=== PATIENT | female | born 1930 | race Caucasian/White ===

== ENCOUNTER 2019-01-09 00:13 | Inpatient (IN) | payer SELFPAY ==
[~2019-01-09] VITALS: Ht 152.4 cm; Wt 61.7 kg
[2019-01-09] MEDS ORDERED: ALBUTEROL 0.083% (NEB) 2.5 MG/3 ML AMP NEB STA (00:21)
[2019-01-09] MEDS ORDERED: ACETAMINOPHEN 325 MG TAB PO STA (00:21)
[2019-01-09] MEDS ORDERED: IPRATROPIUM (NEB) 0.5 MG/2.5 ML AMP NEB STA (00:21)
[2019-01-09] MEDS ORDERED: DEXAMETHASONE 10 MG/ML 1 ML INJ IV ONE (01:00)
[2019-01-09] MEDS ORDERED: LEVOFLOXACIN 500MG/D5W (PMX) 100 ML IVPB ONE (02:00)
[2019-01-09] MEDS ORDERED: ONDANSETRON 4 MG INJ IV PRN ×2 (02:00→03:00)
[2019-01-09] MEDS ORDERED: ACETAMINOPHEN 325 MG TAB PO PRN ×2 (02:00→03:00)
--- NOTE | 2019-01-09 02:23 | ERD ---
ER Documentation Chief Complaint Chief Complaint SOB, HX OF BRONCHITIS HPI This is a very pleasant 88-year female coming in with complaint of shortness of breath and cough for the past 2 days. She is visiting from [facility]. Cough is mildly productive with green sputum. Denies any fevers or chills. Denies any other current complaints. No sick contacts. No chest pain. ROS All systems reviewed and are negative except as per history of present illness. Allergies Allergies: Coded Allergies: Penicillins (Verified Allergy, Unknown, 01/09/19) PMhx/Soc Medical and Surgical Hx: pt denies Medical Hx, pt denies Surgical Hx Hx Alcohol Use: No Hx Substance Use: No Hx Tobacco Use: No Smoking Status: Never smoker Physical Exam Vitals Vital Signs Date Temp Pulse Resp B/P (MAP) Pulse Ox O2 O2 Flow FiO2 Time Delivery Rate 01/09/19 121 22 114/78 96 Nasal 2.0 01:35 (90) Cannula 01/09/19 128 32 96 21 00:50 01/09/19 100.2 121 20 160/71 93 00:15 (100) Physical Exam Const: No acute distress Head: Atraumatic Eyes: Normal Conjunctiva ENT: Normal External Ears, Nose and Mouth. Neck: Full range of motion. No meningismus. Resp: Scattered wheezes and rhonchi bilaterally Cardio: Regular rate and rhythm, no murmurs Abd: Soft, non tender, non distended. Normal bowel sounds Skin: No petechiae or rashes Back: No midline or flank tenderness Ext: No cyanosis, or edema Neur: Awake and alert Psych: Normal Mood and Affect Result Diagram: 01/09/19 0032 01/09/19 0032 Results 24 hrs Laboratory Tests Test 01/09/19 00:20 01/09/19 00:32 01/09/19 00:36 Urine Color YELLOW Urine Clarity SLIGHTLY CLOUDY Urine pH 5.0 Urine Specific [place] 1.015 Urine Ketones NEGATIVE mg/dL Urine Nitrite NEGATIVE mg/dL Urine Bilirubin NEGATIVE mg/dL Urine Urobilinogen 1+ mg/dL Urine Leukocyte Esterase 3+ Cristofer/ul Urine Microscopic RBC 17 /HPF Urine Microscopic WBC 54 /HPF Urine Squamous Epithelial Cells FEW /HPF Urine Bacteria FEW /HPF Urine Mucus FEW /HPF Urine Hemoglobin 2+ mg/dL Urine Glucose NEGATIVE mg/dL Urine Total Protein NEGATIVE mg/dl White Blood Count 14.8 10^3/ul Red Blood Count 4.43 10^6/ul Hemoglobin 13.2 g/dl Hematocrit 41.0 % Mean Corpuscular Volume 92.6 fl Mean Corpuscular Hemoglobin 29.8 pg Mean Corpuscular 32.2 g/dl Hemoglobin Concent Red Cell Distribution Width 13.7 % Platelet Count 238 10^3/UL Mean Platelet Volume 9.5 fl Immature Granulocytes % 0.300 % Neutrophils % 73.9 % Lymphocytes % 16.6 % Monocytes % 8.1 % Eosinophils % 0.7 % Basophils % 0.4 % Nucleated Red Blood Cells % 0.0 /100WBC Immature Granulocytes # 0.050 10^3/ul Neutrophils # 10.9 10^3/ul Lymphocytes # 2.5 10^3/ul Monocytes # 1.2 10^3/ul Eosinophils # 0.1 10^3/ul Basophils # 0.1 10^3/ul Nucleated Red Blood Cells # 0.0 10^3/ul Prothrombin Time 12.7 Sec Prothrombin Time Ratio 1.0 INR International 0.94 Normalized Ratio Activated Partial Thromboplast 28.1 Sec Time Sodium Level 137 mmol/L Potassium Level 3.7 mmol/L Chloride Level 103 mmol/L Carbon Dioxide Level 28 mmol/L Anion Gap 6 Blood Urea Nitrogen 11 mg/dl Creatinine 0.69 mg/dl Est Glomerular Filtrat mL/min Rate mL/min Glucose Level 113 mg/dl Calcium Level 8.9 mg/dl Total Bilirubin 0.6 mg/dl Direct Bilirubin 0.00 mg/dl Indirect Bilirubin 0.6 mg/dl Aspartate Amino 31 IU/L Transf (AST/SGOT) Alanine 21 IU/L Aminotransferase (ALT/SGPT) Alkaline Phosphatase 105 IU/L Troponin I < 0.012 ng/ml Total Protein 7.4 g/dl Albumin 4.1 g/dl Globulin 3.30 g/dl Albumin/Globulin Ratio 1.24 Lipase 56 U/L POC Venous Lactate 0.9 mmol/L Current Medications Medications Dose Sig/Melissa Start Time Status Last (Trade) Ordered Route PRN Stop Time Admin Dose Reason Admin 650 mg ONCE STAT 01/09/19 DC 01/09/19 Acetaminophen PO 00:21 01:24 (Tylenol 01/09/19 00:23 Tab) Albuterol 5 mg ONCE STAT 01/09/19 DC 01/09/19 (Proventil NEB 00:21 00:48 0.083% (Neb)) 01/09/19 00:23 Ipratropium 0.5 mg ONCE STAT 01/09/19 DC 01/09/19 Burke NEB 00:21 00:48 (Atrovent 01/09/19 00:23 0.02% (Neb)) 10 mg ONCE ONCE 01/09/19 DC 01/09/19 Dexamethasone IV 01:00 01:28 (Decadron) 01/09/19 01:01 Ondansetron 4 mg BRIDGE ORDER 01/09/19 HCl (Zofran PRN IV 02:00 Inj) NAUSEA/VOMITI 01/10/19 01:59 NG 650 mg ER BRIDGE 01/09/19 Acetaminophen PRN PO 02:00 (Tylenol .MILD PAIN 01/10/19 01:59 Tab) 1-3 OR TEMP 100 ml @ ONCE ONCE 01/09/19 Levofloxacin/ 100 mls/hr IVPB 02:00 Dextrose 01/09/19 02:59 Procedures/MDM EKG: Rate/Rhythm: [Normal Sinus Rhythm] QRS, ST, T-waves: [No changes consistent w/ acute ischemia] Impression: [No evidence of ischemia or arrhythmia] Chest X-ray 1V Interpreted by me: Soft Tissue: No acute abnormalities Bones: No acute abnormalities Mediastinum/Cardiac Silhouette/Lungs: [No acute abnormalities] Patient's respiratory symptoms have not responded to normal outpatient therapy and will require inpatient workup, monitoring, and treatment. Accepting Care Team: Current data and ongoing care discussed. Time: 2 AM Primary Provider: Dr. Wheeler Consulting: Deferred to inpatient team Outstanding Data: none Departure Diagnosis: Primary Impression: COPD (chronic obstructive pulmonary disease) COPD type: chronic bronchitis Chronic bronchitis type: mixed simple and mucopurulent Qualified Codes: J41.8 - Mixed simple and mucopurulent chronic bronchitis Condition: Serious WILVERMELODY Lamont Jan 09, 2019 02:23
--- NOTE | 2019-01-09 02:46 | HP ---
Date/Time of Note Date/Time of Note DATE: 01/09/19 TIME: 02:45 Assessment/Plan VTE Prophylaxis Pharmacological prophylaxis: heparin Lines/Catheters IV C[facility]ter Type (from [facility]): Peripheral IV Assessment/Plan Hospital Course This is a 88-year-old female being admitted to the telemetry floor for: #1 Suspect sepsis: Patient did present with a temp of 100.2. She was also tachycardic, tachynpniec x-rays concerning for possible underlying pneumonia bronchitis. Given also patient's night sweats and recent arrival from [place] we will also assess for underlying tuberculosis. Broad-spectrum antibiotics of vancomycin and aztreonam at the current time given patient's penicillin allergy. Will isolate the patient. We will test for acid-fast bacilli every 8 hours x3, QuantiFERON, MTB. Blood cultures are pending. #2 hypoxia: bronchtis, pna, vs other? Patient is requiring approximately 3 L supplemental O2. She does have diminished breath sounds bilaterally. Scheduled nebulizers of levaalbuterol and ipratropium. Steroid burst prednisone 40 mg p.o. daily. Patient's chest x-ray does show a possible hilar mass. We will proceed with a CT of the chest with and without contrast to further evaluate. #3 urinary tract infection: Currently on vancomycin and Zosyn, await urine culture results #4 DVT GI prophylaxis: Heparin subcu, Protonix Further treatment strategy will be implemented as per the clinical course. Result Diagram: 01/09/19 0032 01/09/19 0032 Results 24hrs Laboratory Tests Test 01/09/19 00:20 01/09/19 00:32 01/09/19 00:36 Urine Color YELLOW Urine Clarity SLIGHTLY CLOUDY A Urine pH 5.0 Urine Specific [place] 1.015 Urine Ketones NEGATIVE Urine Nitrite NEGATIVE Urine Bilirubin NEGATIVE Urine Urobilinogen 1+ H Urine Leukocyte Esterase 3+ H Urine Microscopic RBC 17 H Urine Microscopic WBC 54 H Urine Squamous FEW Epithelial Cells Urine Bacteria FEW A Urine Mucus FEW A Urine Hemoglobin 2+ H Urine Glucose NEGATIVE Urine Total Protein NEGATIVE White Blood Count 14.8 H Red Blood Count 4.43 Hemoglobin 13.2 Hematocrit 41.0 Mean Corpuscular Volume 92.6 Mean Corpuscular Hemoglobin 29.8 Mean Corpuscular 32.2 Hemoglobin Concent Red Cell Distribution Width 13.7 Platelet Count 238 Mean Platelet Volume 9.5 Immature Granulocytes % 0.300 Neutrophils % 73.9 Lymphocytes % 16.6 Monocytes % 8.1 Eosinophils % 0.7 Basophils % 0.4 Nucleated Red Blood Cells % 0.0 Immature Granulocytes # 0.050 H Neutrophils # 10.9 H Lymphocytes # 2.5 Monocytes # 1.2 H Eosinophils # 0.1 Basophils # 0.1 Nucleated Red Blood Cells # 0.0 Prothrombin Time 12.7 Prothrombin Time Ratio 1.0 INR International 0.94 Normalized Ratio Activated Partial Thromboplast 28.1 Time Sodium Level 137 Potassium Level 3.7 Chloride Level 103 Carbon Dioxide Level 28 Anion Gap 6 Blood Urea Nitrogen 11 Creatinine 0.69 Est Glomerular Filtrat Rate mL/min Glucose Level 113 Calcium Level 8.9 Total Bilirubin 0.6 Direct Bilirubin 0.00 Indirect Bilirubin 0.6 Aspartate Amino 31 Transf (AST/SGOT) Alanine 21 Aminotransferase (ALT/SGPT) Alkaline Phosphatase 105 Troponin I < 0.012 Total Protein 7.4 Albumin 4.1 Globulin 3.30 H Albumin/Globulin Ratio 1.24 Lipase 56 POC Venous Lactate 0.9 HPI/ROS Admit Date/Time Admit Date/Time Hx of Present Illness Chief complaint: Cough x3 days, phlegm This is a 88-year-old female with no past medical history according to her and the family who comes today with cough x3 days and phlegm. Patient was present with the family at the bedside. The family states that the patient is a visitor from [place] and came over from [place] approximately 1 week ago. Patient has been complaining of cough and phlegm for approximately 3 days. She denies any fevers. But she does report night sweats. She denies any chest pain or hemoptysis. Allergies: Penicillin Medications: None ROS Const: As per HPI Eyes : No pain discharge or redness or change in visual acuity ENT: No pain, sore throat, congestion, congestion, dysphagia or discharge Respiratory: As per HPI Cardiovascular: No chest pain, palpitation, PND, or edema GI : no change in appetite, abdominal pain, nausea, vomiting, diarrhea, constipation, or change in the color his stool Genitourinary: No dysuria, hematuria, flank pain , discharge or CVA tenderness Musculoskeletal: No joint pain, back pain, neck pain, restricted range of motion in neck or joints Skin: No rash, bruising or hives Neuro: No headache, dizziness, syncope, seizure, focal weakness Endocrine: No polyuria, polydipsia, temperature intolerance Psych: No hallucination, depression, anxiety or suicidal ideation PMH/Family/Social Past Medical History Medical History: no pertinent history Medications Current Medications Ondansetron HCl (Zofran Inj) 4 mg BRIDGE ORDER PRN IV NAUSEA/VOMITING; Start 01/09/19 at 02:00; Stop 01/10/19 at 01:59 Acetaminophen (Tylenol Tab) 650 mg ER BRIDGE PRN PO .MILD PAIN 1-3 OR TEMP; Start 01/09/19 at 02:00; Stop 01/10/19 at 01:59 Levofloxacin/ Dextrose 100 ml @ 100 mls/hr ONCE ONCE IVPB ; Start 01/09/19 at 02:00; Stop 01/09/19 at 02:59 Levalbuterol (Xopenex Neb) 1.25 mg Q4H HHN ; Start 01/09/19 at 03:00; Status UNV Ipratropium [place] (Atrovent 0.02% (Neb)) 0.5 mg Q4H RESP THERAPY HHN ; Start 01/09/19 at 05:00; Status UNV Prednisone (Prednisone) 40 mg DAILY PO ; Start 01/09/19 at 09:00; Stop 01/14/19 at 08:59; Status UNV Famotidine (Pepcid) 20 mg BID PO ; Start 01/09/19 at 03:00; Status UNV Coded Allergies: Penicillins (Verified Allergy, Unknown, 01/09/19) Past Surgical History Past Surgical Hx: no surgical history Family History Significant Family History: no pertinent family hx Social History Alcohol Use: none Smoking Status: Never smoker Drug Use: none Exam/Review of Systems Vital Signs Vitals Vital Signs Date Temp Pulse Resp B/P (MAP) Pulse Ox O2 O2 Flow FiO2 Time Delivery Rate 01/09/19 112 23 113/75 100 Nasal 2.0 02:31 (88) Cannula 01/09/19 21 00:50 01/09/19 100.2 00:15 Exam Exam General: Pleasant female currently lying in bed, she does not appear to be in any acute respiratory distress, she is currently on 3 L O2 of HEENT: Atraumatic, normocephalic. The pupils are equal, round and reactive. Extraocular motor are intact Neck: Supple with full range of motion. No rigidity or meningismus Chest: Nontender Lungs: Diminished breath sounds bilaterally, coarse Heart: sinus tachycardia Abdomen: Soft , nontender, nondistended , bowel sounds are present. No guarding no rebound tenderness , No masses or organomegaly. No costovertebral temporal a ngle mass Extremities: Normal to inspection, no edema no cyanosis Neurologic: Normal mental status, speech normal, cranial nerves II through XII are intact, motor and sensory are intact, Additional Comments EKG: Sinus tachycardia at approximately 127 bpm, no ST or T wave noise c oncerning for acute ischemia PROCEDURE: XR Chest. CLINICAL INDICATION: Possible sepsis TECHNIQUE: Single frontal view of the chest was obtained COMPARISON: None FINDINGS: There is appearance of minimal enlargement of the cardiac silhouette. Calcification in the aortic arch. There is minimal prominence of the lung interstitium likely minimal chronic changes. There is the suggestion of mild prominence of the right hilum. A right hilar mass is possible. Possible right lung apical linear fibrotic changes. Likely linear atelectasis/fibrosis at the left lung base. There is the suggestion of tenting of the right hemidiaphragm. ECG leads project over the chest. Small bilateral pleural effusions left larger than right. Degenerative enthesopathy in thoracic spine. IMPRESSION: Minimal enlargement of the cardiac silhouette. Suggestion of mild prominence of the right hilum. A right hilar mass is possible. Small bilateral pleural effusions left larger than right. CT chest with contrast may be useful for further evaluation. Please see above. RPTAT: HJES .Radhames Phillips MD, Date Time Electronically viewed and signed by .Radhames Phillips MD, on 01/09/2019 01:48 .S/ CC: MELODY PETTIT [id number] JOSIE GROVES Jan 09, 2019 02:46
[2019-01-09] MEDS ORDERED: SOD CHLORIDE 0.9% 100 ML ONE (02:50)
[2019-01-09] MEDS ORDERED: IOHEXOL 300MG/ML 150 ML BTL ONE (02:50)
[2019-01-09] MEDS ORDERED: PHEN118L PO (02:51)
[2019-01-09] MEDS ORDERED: DOCUSATE SODIUM 100 MG CAP PO PRN (03:00)
[2019-01-09] MEDS ORDERED: BISACODYL (EC) 5 MG TAB PO PRN (03:00)
[2019-01-09] MEDS ORDERED: NACL 0.9% 3 ML SYG IV SCH (03:00)
[2019-01-09] MEDS ORDERED: ALBUTEROL 0.083% (NEB) 2.5 MG/3 ML AMP NEB ONE (03:18)
[2019-01-09] MEDS ORDERED: IPRATROPIUM (NEB) 0.5 MG/2.5 ML AMP NEB ONE (03:19)
[2019-01-09] MEDS: FAMOTIDINE 20 MG TAB PO SCH ×2 (04:36→09:00)
[2019-01-09] MEDS: IPRATROPIUM (NEB) 0.5 MG/2.5 ML AMP HHN SCH ×5 (05:45→20:53)
[2019-01-09] MEDS: LEVALBUTEROL (NEB) 1.25 MG/0.5 ML AMP HHN SCH ×5 (05:45→20:53)
[2019-01-09] MEDS: HEPARIN 5,000 UNIT/1 ML VIAL SC SCH ×2 (06:20→15:54)
[2019-01-09] MEDS ORDERED: VANCOMYCIN IV PER PHARMACY XX SCH (07:30)
[2019-01-09] MEDS ORDERED: SOD CHLORIDE 0.9% 500 ML IV ONE (07:30)
[2019-01-09] MEDS ORDERED: NACL 3% FOR INHALATION 15 ML NEBU NEB ONE (07:30)
[2019-01-09] MEDS: AZTREONAM 1 GM/NS (PMX) 50 ML IVPB SCH ×2 (08:16→23:06)
[2019-01-09] MEDS ORDERED: predniSONE 20 MG TAB PO SCH ×2 (09:00)
[2019-01-09] MEDS ORDERED: VANCOMYCIN HCL 1.25 GM in SOD CHLORIDE 0.9% 250 ML IVPB SCH (09:00)
--- NOTE | 2019-01-09 17:06 | PN ---
Date/Time of Note Date/Time of Note DATE: 01/09/19 TIME: 17:04 Assessment/Plan VTE Prophylaxis SCD contraindicated: low risk/ambulating Pharmacological prophylaxis: LMWH Lines/Catheters IV Catheter Type (from Nrs): Peripheral IV Assessment/Plan Hospital Course Assessment and plan 1. Dyspnea, fever, bronchitis versus pneumonia. Antibiotics, follow-up on cultures 2. 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 3. Weight loss 5 to 8 pounds. 4. COPD? 5. Acute hypoxic respiratory failure, stable continue antibiotics S: Dyspnea low-grade fever. Mild/moderate weight loss only. States she was treated many years ago for tuberculosis. She started medical therapy in [place] and finished treatment in [place]. Denies any ill contacts. Did recently travel here from [place]. No edema chest pain. Diet has been okay. [place] and [place]. O: vss; some tachycardia Physical exam No pallor adenopathy JVD Regular some tachycardia no rub no gallop Scattered wheeze bilaterally Bowel sounds present nontender nondistended no RRG No edema or Homans Result Diagram: 01/09/19 0430 01/09/19 0430 Results 24hrs Laboratory Tests Test 01/09/19 00:20 01/09/19 00:32 01/09/19 00:36 01/09/19 04:30 Urine Color YELLOW Urine Clarity SLIGHTLY CLOUDY A Urine pH 5.0 Urine Specific 1.015 [place] Urine Ketones NEGATIVE Urine Nitrite NEGATIVE Urine Bilirubin NEGATIVE Urine 1+ H Urobilinogen Urine Leukocyte 3+ H Esterase Urine Microscopic 17 H RBC Urine Microscopic 54 H WBC Urine Squamous FEW Epithelial Cells Urine Bacteria FEW A Urine Mucus FEW A Urine Hemoglobin 2+ H Urine Glucose NEGATIVE Urine Total NEGATIVE Protein White Blood Count 14.8 H 16.0 H Red Blood Count 4.43 4.44 Hemoglobin 13.2 13.4 Hematocrit 41.0 41.1 Mean Corpuscular 92.6 92.6 Volume Mean Corpuscular 29.8 30.2 Hemoglobin Mean Corpuscular 32.2 32.6 Hemoglobin Concen t Red Cell 13.7 13.6 Distribution Width Platelet Count 238 236 Mean Platelet 9.5 9.3 Volume Immature 0.300 0.300 Granulocytes % Neutrophils % 73.9 Lymphocytes % 16.6 Monocytes % 8.1 Eosinophils % 0.7 Basophils % 0.4 Nucleated Red 0.0 0.0 Blood Cells % Immature 0.050 H 0.050 H Granulocytes # Neutrophils # 10.9 H Lymphocytes # 2.5 Monocytes # 1.2 H Eosinophils # 0.1 Basophils # 0.1 Nucleated Red 0.0 Blood Cells # Prothrombin Time 12.7 Prothrombin Time 1.0 Ratio INR International 0.94 Normalized Ratio Activated 28.1 Partial Thrombopl ast Time Sodium Level 137 137 Potassium Level 3.7 3.7 Chloride Level 103 102 Carbon Dioxide 28 26 Level Anion Gap 6 9 Blood Urea 11 10 Nitrogen Creatinine 0.69 0.61 Est Glomerular Filtrat Rate mL/min Glucose Level 113 225 #H Calcium Level 8.9 8.7 Total Bilirubin 0.6 0.6 Direct Bilirubin 0.00 0.00 Indirect 0.6 0.6 Bilirubin Aspartate Amino 31 28 Transf (AST/SGOT) Alanine 21 19 Aminotransferase (ALT/SGPT) Alkaline 105 113 Phosphatase Troponin I < 0.012 Total Protein 7.4 7.2 Albumin 4.1 4.0 Globulin 3.30 H 3.20 Albumin/Globulin 1.24 1.25 Ratio Lipase 56 POC Venous 0.9 Lactate Segmented 95 H Neutrophils % (Manual) Band Neutrophils 3 % (Manual) Lymphocytes % 2 L (Manual) Neutrophils # 15.3 H (Manual) Band Neutrophils 0.4 # Lymphocytes 0.3 L (Manual) Platelet Estimate NORMAL Polychromasia 1+ Hemoglobin A1c 5.9 Lactic Acid Level 1.8 B-Type 92 Natriuretic Peptide Thyroid 1.870 Stimulating Hormone (TSH) Test 01/09/19 08:00 01/09/19 08:21 Blood Gas Blood arterial Specimen Source Arterial Blood 01/09/2019 8:19:0 Date Drawn 0 AM Arterial Blood pH 7.427 (Temp corrected) Arterial Blood 33.2 L pCO2 (Temp correct) Arterial Blood 78.0 L pO2 (Temp corrected) Arterial Blood 21.4 L HCO3 Arterial Blood -2.2 Base Excess Arterial Blood 94.2 L Oxygen Saturation Jose Antonio Test ACCEPTAB Arterial Blood Right Radial Gas Puncture Site Arterial 0.5 Blood Carboxyhemo globin Arterial Blood 0.5 Methemoglobin Blood Gas A-a O2 169.0 H Differential Oxyhemoglobin 93.3 Percent Blood Gas 37.0 Temperature Blood Gas 20.0 Respiration Rate Blood Gas Actual 20 Respiration Rate Blood Gas VENT - AC Modality FiO2 40.0 Blood Gas Tidal 550.0 Volume Blood Gas Low 5.0 PEEP Setting Blood Gas CW Notified Whom Blood Gas 01/09/2019 8:27:0 Notified Time 0 AM Creatine Kinase 54 Creatine Kinase 4.2 Index Creatinine Kinase 2.27 MB (Mass) Troponin I < 0.012 Exam/Review of Systems Exam Vitals Vital Signs Date Temp Pulse Resp B/P (MAP) Pulse Ox O2 O2 Flow FiO2 Time Delivery Rate 01/09/19 111 20 100 Nasal 3.0 16:06 Cannula 01/09/19 97.9 115/68 14:00 (84) 01/09/19 21 00:50 Results Results 24hrs Laboratory Tests Test 01/09/19 00:20 01/09/19 00:32 01/09/19 00:36 01/09/19 04:30 Urine Color YELLOW Urine Clarity SLIGHTLY CLOUDY A Urine pH 5.0 Urine Specific 1.015 [place] Urine Ketones NEGATIVE Urine Nitrite NEGATIVE Urine Bilirubin NEGATIVE Urine 1+ H Urobilinogen Urine Leukocyte 3+ H Esterase Urine Microscopic 17 H RBC Urine Microscopic 54 H WBC Urine Squamous FEW Epithelial Cells Urine Bacteria FEW A Urine Mucus FEW A Urine Hemoglobin 2+ H Urine Glucose NEGATIVE Urine Total NEGATIVE Protein White Blood Count 14.8 H 16.0 H Red Blood Count 4.43 4.44 Hemoglobin 13.2 13.4 Hematocrit 41.0 41.1 Mean Corpuscular 92.6 92.6 Volume Mean Corpuscular 29.8 30.2 Hemoglobin Mean Corpuscular 32.2 32.6 Hemoglobin Concen t Red Cell 13.7 13.6 Distribution Width Platelet Count 238 236 Mean Platelet 9.5 9.3 Volume Immature 0.300 0.300 Granulocytes % Neutrophils % 73.9 Lymphocytes % 16.6 Monocytes % 8.1 Eosinophils % 0.7 Basophils % 0.4 Nucleated Red 0.0 0.0 Blood Cells % Immature 0.050 H 0.050 H Granulocytes # Neutrophils # 10.9 H Lymphocytes # 2.5 Monocytes # 1.2 H Eosinophils # 0.1 Basophils # 0.1 Nucleated Red 0.0 Blood Cells # Prothrombin Time 12.7 Prothrombin Time 1.0 Ratio INR International 0.94 Normalized Ratio Activated 28.1 Partial Thrombopl ast Time Sodium Level 137 137 Potassium Level 3.7 3.7 Chloride Level 103 102 Carbon Dioxide 28 26 Level Anion Gap 6 9 Blood Urea 11 10 Nitrogen Creatinine 0.69 0.61 Est Glomerular Filtrat Rate mL/min Glucose Level 113 225 #H Calcium Level 8.9 8.7 Total Bilirubin 0.6 0.6 Direct Bilirubin 0.00 0.00 Indirect 0.6 0.6 Bilirubin Aspartate Amino 31 28 Transf (AST/SGOT) Alanine 21 19 Aminotransferase (ALT/SGPT) Alkaline 105 113 Phosphatase Troponin I < 0.012 Total Protein 7.4 7.2 Albumin 4.1 4.0 Globulin 3.30 H 3.20 Albumin/Globulin 1.24 1.25 Ratio Lipase 56 POC Venous 0.9 Lactate Segmented 95 H Neutrophils % (Manual) Band Neutrophils 3 % (Manual) Lymphocytes % 2 L (Manual) Neutrophils # 15.3 H (Manual) Band Neutrophils 0.4 # Lymphocytes 0.3 L (Manual) Platelet Estimate NORMAL Polychromasia 1+ Hemoglobin A1c 5.9 Lactic Acid Level 1.8 B-Type 92 Natriuretic Peptide Thyroid 1.870 Stimulating Hormone (TSH) Test 01/09/19 08:00 01/09/19 08:21 Blood Gas Blood arterial Specimen Source Arterial Blood 01/09/2019 8:19:0 Date Drawn 0 AM Arterial Blood pH 7.427 (Temp corrected) Arterial Blood 33.2 L pCO2 (Temp correct) Arterial Blood 78.0 L pO2 (Temp corrected) Arterial Blood 21.4 L HCO3 Arterial Blood -2.2 Base Excess Arterial Blood 94.2 L Oxygen Saturation Jose Antonio Test ACCEPTAB Arterial Blood Right Radial Gas Puncture Site Arterial 0.5 Blood Carboxyhemo globin Arterial Blood 0.5 Methemoglobin Blood Gas A-a O2 169.0 H Differential Oxyhemoglobin 93.3 Percent Blood Gas 37.0 Temperature Blood Gas 20.0 Respiration Rate Blood Gas Actual 20 Respiration Rate Blood Gas VENT - AC Modality FiO2 40.0 Blood Gas Tidal 550.0 Volume Blood Gas Low 5.0 PEEP Setting Blood Gas Notified Whom Blood Gas 01/09/2019 8:27:0 Notified Time 0 AM Creatine Kinase 54 Creatine Kinase 4.2 Index Creatinine Kinase 2.27 MB (Mass) Troponin I < 0.012 Medications Medication Current Medications Levalbuterol (Xopenex Neb) 1.25 mg Q4H RESP THERAPY HHN Last administered on 01/09/19at 16:05; Admin Dose 1.25 MG; Start 01/09/19 at 05:00 Ipratropium [place] (Atrovent 0.02% (Neb)) 0.5 mg Q4H RESP THERAPY HHN Last administered on 01/09/19at 16:05; Admin Dose 0.5 MG; Start 01/09/19 at 05:00 Famotidine (Pepcid) 20 mg BID PO Last administered on 01/09/19at 04:36; Admin Dose 20 MG; Start 01/09/19 at 03:00 IV Flush (NS 3 ml) 3 ml PER PROTOCOL IV ; Start 01/09/19 at 03:00 Ondansetron HCl (Zofran Inj) 4 mg Q6H PRN IV NAUSEA/VOMITING; Start 01/09/19 at 03:00 Acetaminophen (Tylenol Tab) 650 mg Q6H PRN PO .PAIN 1-3 OR TEMP; Start 01/09/19 at 03:00 Docusate Sodium (Colace) 100 mg Q12H PRN PO .CONSTIPATION; Start 01/09/19 at 03:00 Bisacodyl (Dulcolax) 5 mg DAILY PRN PO .CONSTIPATION; Start 01/09/19 at 03:00 Heparin Sodium (Porcine) (Heparin (5000 Units/1ml)) 5,000 unit Q8 SC Last administered on 01/09/19at 15:54; Admin Dose 5,000 UNIT; Start 01/09/19 at 06:00 Aztreonam 50 ml @ 100 mls/hr Q12 IVPB Last administered on 01/09/19at 08:16; Admin Dose 100 MLS/HR; Start 01/09/19 at 09:00 Vancomycin HCl (Vanco Iv Per Pharmacy) VANCOMYCIN PER PHARMACY PER PROTOCOL XX ; Start 01/09/19 at 07:30 Prednisone (Prednisone) 40 mg DAILY PO Last administered on 01/09/19at 09:56; Admin Dose 40 MG; Start 01/09/19 at 09:00 Vancomycin HCl 1.25 gm/Sodium Chloride 250 ml @ 83.333 mls/ hr ONCE IVPB Last administered on 01/09/19at 09:55; Admin Dose 83.333 MLS/HR; Start 01/09/19 at 09:00; Stop 01/09/19 at 18:00 Vancomycin/Sodium Chloride 250 ml @ 125 mls/hr Q24H IVPB ; Start 01/10/19 at 10:00 PRICE MIRANDA MD Jan 09, 2019 17:06
[2019-01-09] MEDS: METHYLPREDNISOLONE 125 MG INJ IV SCH (18:47)
[2019-01-09] MEDS: MAGNESIUM OXIDE 400 MG TAB PO SCH ×2 (18:48→20:25)
[2019-01-09 21:45] VITALS: BP 153/65; PULSE 116; RESP 20
--- NOTE | 2019-01-09 22:13 | RADRPT ---
Echocardiogram Report Patient Name: Donna KUNZ ID: [id number] : 1930 (88y 2m)Study Date: 01/09/2019 8:25:26 AM Gender: FAccession #: [id number] Tech: DC Location: [facility] Ref.Physician: JOSIE GROVES Height(Cm): BSA: Weight(Kg): Quality: GoodOrder Physician: JOSIE GROVES Account #: Procedures: Echocardiographic Report: Transthoracic echocardiogram with complete 2D, M-Mode, and doppler examination. Indications: Shortness of breath, and Tachycardia. Measurements: 2D/M Mode Doppler Measurement Value Normal Range Measurement Value Normal Range LVIDd 2D 4.0 [ 3.8 - 5.2 ] cm AV Peak Jai 1.9 [ 100.0 - 170.0 ] cm/sec LVIDs 2D 2.1 [ 2.2 - 3.5 ] cm AV Peak PG 14.0 [ 2.0 - 9.0 ] mmHg LVPWd 2D 0.9 [ 0.6 - 0.9 ] cm LVOT Peak Jai 1.2 [ 70.0 - 110.0 ] cm/sec IVSd 2D 1.0 [ 0.6 - 0.9 ] cm LVOT Peak PG 6.0 [ 2.0 - 6.0 ] mmHg IVS/LVPW 2D 1.1 ratio MV E Peak Jai 0.8 [ 60.0 - 130.0 ] cm/sec AoR Diam 2D 2.6 [ 2.3 - 3.1 ] cm MV A Peak Jai 1.2 [ 100.0 - 120.0 ] cm/sec LA/Ao 2D 1 ratio MV E/A 0.7 [ 0.8 - 1.5 ] ratio LA Dimen 2D 3.0 [ 2.7 - 3.8 ] cm MV Decel Time 120 [ 104 - 258 ] msec MV E/A 0.7 [ 0.8 - 1.5 ] ratio Findings: Left Ventricle: Normal left ventricular systolic function. Normal left ventricular cavity size. Normal left ventricular wall thickness. Ejection fraction is visually estimated at 60 %. Tissue Doppler/Mitral Doppler indices are consistent with impaired relaxation (Stage I diastolic dysfunction). Right Ventricle: Normal right ventricular size. Normal right ventricular systolic function. Left Atrium: The left atrium is normal in size. Right Atrium: The right atrium is normal in size. Mitral Valve: Normal appearance and function of the mitral valve with trace physiologic regurgitation. Aortic Valve: Normal appearance of the aortic valve. No significant aortic stenosis or insufficiency. Tricuspid Valve: Normal appearance of the tricuspid valve. Unable to obtain RVSP due to minimal presence of tricuspid regurgitation. Pulmonic Valve: Normal pulmonic valve appearance. Pericardium: Trivial pericardial effusion. Aorta: Normal aortic root. IVC: Normal size and normal respiratory collapse consistent with normal right atrial pressure. Conclusions: Normal left ventricular systolic function. Normal left ventricular cavity size. Normal left ventricular wall thickness. Ejection fraction is visually estimated at 60 %. Tissue Doppler/Mitral Doppler indices are consistent with impaired relaxation (Stage I diastolic dysfunction). Normal appearance and function of the mitral valve with trace physiologic regurgitation. Normal appearance of the tricuspid valve. Unable to obtain RVSP due to minimal presence of tricuspid regurgitation. Electronically Signed By: Zak Vera 2019-01-09 22:12:47 PDT
[2019-01-09 22:24] VITALS: Ht 152.4 cm; Wt 61.7 kg
[2019-01-09] MEDS ORDERED: [UNRECOGNIZED DRUG - OTHER] INH (23:41)
[2019-01-10] MEDS: LEVALBUTEROL (NEB) 1.25 MG/0.5 ML AMP HHN SCH ×6 (01:12→22:16)
[2019-01-10] MEDS: IPRATROPIUM (NEB) 0.5 MG/2.5 ML AMP HHN SCH ×6 (01:12→22:16)
[2019-01-10] MEDS: METHYLPREDNISOLONE 125 MG INJ IV SCH ×3 (01:37→17:53)
[2019-01-10 02:00] VITALS: BP 140/60; PULSE 113; RESP 18
[2019-01-10 08:10] VITALS: BP 133/57; PULSE 26; PULSE 76; RESP 20; RESP 26
[2019-01-10] MEDS: MAGNESIUM OXIDE 400 MG TAB PO SCH ×3 (09:06→20:10)
[2019-01-10] MEDS: FAMOTIDINE 20 MG TAB PO SCH (09:06)
[2019-01-10] MEDS: ENOXAPARIN 40 MG/0.4 ML SYG SC SCH (09:06)
[2019-01-10] MEDS: AZTREONAM 1 GM/NS (PMX) 50 ML IVPB SCH (09:53)
[2019-01-10] MEDS ORDERED: VANCOMYCIN 750 MG (PMX) 250 ML IVPB SCH (10:00)
--- NOTE | 2019-01-10 12:47 | CONS ---
Assessment/Plan Assessment/Plan Assessment/Plan (Daily) Assessment and recommendations; 1. Patient admitted with acute bronchitis with severe wheezing of very recent onset. No prior symptoms until just a few days ago. 2. 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 Currently there is no indication to suggest pulmonary tuberculosis. 3. Possibly UTI. Discontinue vancomycin and Azactam. Will start Levaquin 500 mg orally daily. Further antibiotic adjustment to be done once urine culture results are obtained. Meanwhile continue Solu-Medrol as well as broncho-dilator regimen. I did have a detailed discussion with the patient's daughter at bedside and answered all her questions. Consultation Date/Type/Reason Admit Date/Time Date of Consultation: Jan 10, 2019 Type of Consult Pulmonary Patient is a very pleasant 88-year-old lady who just came in from [place] few days ago and after she got here the patient started having chest congestion and wheezing and low-grade fever. According to her she was absolutely fine prior to the onset of symptoms just a few days ago. Patient has been started on appropriate bronchodilator as well as systemic steroid regimen. Patient is reporting some improvement in symptoms. Denies any further fever, any chest pain, sore throat, or any other constitutional symptoms. Denies any chronic respiratory symptoms. Past medical history; unremarkable. Medications; reviewed. Allergies; penicillin. Social history; never smoked. Family history; noncontributory. Patient does have a supportive family. Occupational history; patient used to work in the [employer]. Review of systems; denies any headache, visual changes, sinus symptoms. Any chest pain, angina, complains of scant cough without any sputum production or hemoptysis. Complains of wheezing. Denies any chronic respiratory symptoms. Denies any abdominal pain, nausea, vomiting. Any melena hematochezia. Any urinary symptoms. Any edema. Any skin changes. Any arthritis symptoms. Any weight loss. Any night sweats or chills. General exam; elderly woman, awake alert, currently in no distress. Date/Time of Note DATE: 01/10/19 TIME: 12:43 Past Medical History Medical History: no pertinent history Home Meds Reported Medications [Ultibro] No Conflict Check, INH DAILY PRN for SHORTNESS OF BREATH 01/09/19 Phenylephrine/Diphenhydramine (DIMETAPP COLD & CONGEST LIQUID) 118 Ml Liquid, 118 ML PO 01/09/19 Medications Current Medications Levalbuterol (Xopenex Neb) 1.25 mg Q4H RESP THERAPY HHN Last administered on 01/10/19at 12:20; Admin Dose 1.25 MG; Start 01/09/19 at 05:00 Ipratropium [place] (Atrovent 0.02% (Neb)) 0.5 mg Q4H RESP THERAPY HHN Last administered on 01/10/19at 12:20; Admin Dose 0.5 MG; Start 01/09/19 at 05:00 IV Flush (NS 3 ml) 3 ml PER PROTOCOL IV ; Start 01/09/19 at 03:00 Ondansetron HCl (Zofran Inj) 4 mg Q6H PRN IV NAUSEA/VOMITING; Start 01/09/19 at 03:00 Acetaminophen (Tylenol Tab) 650 mg Q6H PRN PO .PAIN 1-3 OR TEMP; Start 01/09/19 at 03:00 Docusate Sodium (Colace) 100 mg Q12H PRN PO .CONSTIPATION; Start 01/09/19 at 03:00 Bisacodyl (Dulcolax) 5 mg DAILY PRN PO .CONSTIPATION; Start 01/09/19 at 03:00 Aztreonam 50 ml @ 100 mls/hr Q12 IVPB Last administered on 01/10/19at 09:53; Admin Dose 100 MLS/HR; Start 01/09/19 at 09:00 Vancomycin HCl (Vanco Iv Per Pharmacy) VANCOMYCIN PER PHARMACY PER PROTOCOL XX ; Start 01/09/19 at 07:30 Vancomycin/Sodium Chloride 250 ml @ 125 mls/hr Q24H IVPB Last administered on 01/10/19at 10:38; Admin Dose 125 MLS/HR; Start 01/10/19 at 10:00 Famotidine (Pepcid) 20 mg DAILY PO Last administered on 01/10/19 09:06; Admin Dose 20 MG; Start 01/10/19 at 09:00 Methylprednisolone Sodium Succinate (Solu-Medrol) 90 mg Q8H IV Last administered on 01/10/19 09:08; Admin Dose 90 MG; Start 01/09/19 at 17:30 Guaifenesin/ Dextromethorphan (Robitussin Dm Liquid Cup) 10 ml Q4 PRN PO COUGH; Start 01/09/19 at 17:30 Magnesium Oxide (Mag-Ox 400) 400 mg TID PO Last administered on 01/10/19at 09:06; Admin Dose 400 MG; Start 01/09/19 at 17:30 Enoxaparin Sodium (Lovenox) 40 mg DAILY SC Last administered on 01/10/19at 09:06; Admin Dose 40 MG; Start 01/10/19 at 09:00 Allergies: Coded Allergies: Penicillins (Verified Allergy, Unknown, 01/09/19) Past Surgical History Past Surgical Hx: no surgical history Social History Alcohol Use: none Smoking Status: Never smoker Drug Use: none Exam/Review of Systems Exam Vitals Vital Signs Date Temp Pulse Resp B/P (MAP) Pulse Ox O2 O2 Flow FiO2 Time Delivery Rate 01/10/19 101 22 97 Nasal 2.0 12:20 Cannula 01/10/19 98.3 133/57 08:10 (82) 01/10/19 21 01:13 Intake and Output 01/09/19 01/09/19 01/10/19 1515:00 23:00 07:00 IntakeIntake Total 350 ml BalanceBalance 350 ml Exam H EENT exam; supple neck, no JVD. No lymphadenopathy. Midline trachea. No thyromegaly. No neck masses. Pupils are small bilaterally. Patient has dentures in place. Chest exam; diffuse bilateral wheezing. S1-S2 audible, no murmurs. Regular rhythm. Abdomen exam; soft, nontender. No organomegaly. Bowel sounds audible. Extremity exam; no peripheral edema clubbing. [employer] exam; no focal deficit. Results Result Diagram: 01/10/19 0500 01/10/19 0438 Results 24hrs Laboratory Tests Test 01/10/19 04:38 01/10/19 05:00 Sodium Level 140 Potassium Level 3.9 Chloride Level 108 Carbon Dioxide Level 28 Anion Gap 4 L Blood Urea Nitrogen 17 Creatinine 0.60 Est Glomerular Filtrat Rate mL/min Glucose Level 150 Calcium Level 9.4 Phosphorus Level 2.4 L Magnesium Level 2.3 Total Bilirubin 0.6 Direct Bilirubin 0.00 Indirect Bilirubin 0.6 Aspartate Amino Transf (AST/SGOT) 40 Alanine Aminotransferase (ALT/SGPT) 23 Alkaline Phosphatase 98 Troponin I 0.017 Total Protein 6.9 Albumin 3.8 Globulin 3.10 Albumin/Globulin Ratio 1.22 Thyroid Stimulating Hormone (TSH) 1.090 White Blood Count 18.1 H Red Blood Count 4.24 Hemoglobin 12.8 Hematocrit 38.7 Mean Corpuscular Volume 91.3 Mean Corpuscular Hemoglobin 30.2 Mean Corpuscular Hemoglobin Concent 33.1 Red Cell Distribution Width 13.7 Platelet Count 247 Mean Platelet Volume 9.9 Immature Granulocytes % 0.400 Neutrophils % 93.5 H Lymphocytes % 4.2 L Monocytes % 1.8 Eosinophils % 0.0 Basophils % 0.1 Nucleated Red Blood Cells % 0.0 Immature Granulocytes # 0.080 H Neutrophils # 16.9 H Lymphocytes # 0.8 Monocytes # 0.3 Eosinophils # 0.0 Basophils # 0.0 Nucleated Red Blood Cells # 0.0 Medications Medication Current Medications Levalbuterol (Xopenex Neb) 1.25 mg Q4H RESP THERAPY HHN Last administered on 01/10/19at 12:20; Admin Dose 1.25 MG; Start 01/09/19 at 05:00 Ipratropium [place] (Atrovent 0.02% (Neb)) 0.5 mg Q4H RESP THERAPY HHN Last administered on 01/10/19at 12:20; Admin Dose 0.5 MG; Start 01/09/19 at 05:00 IV Flush (NS 3 ml) 3 ml PER PROTOCOL IV ; Start 01/09/19 at 03:00 Ondansetron HCl (Zofran Inj) 4 mg Q6H PRN IV NAUSEA/VOMITING; Start 01/09/19 at 03:00 Acetaminophen (Tylenol Tab) 650 mg Q6H PRN PO .PAIN 1-3 OR TEMP; Start 01/09/19 at 03:00 Docusate Sodium (Colace) 100 mg Q12H PRN PO .CONSTIPATION; Start 01/09/19 at 03:00 Bisacodyl (Dulcolax) 5 mg DAILY PRN PO .CONSTIPATION; Start 01/09/19 at 03:00 Aztreonam 50 ml @ 100 mls/hr Q12 IVPB Last administered on 01/10/19at 09:53; Admin Dose 100 MLS/HR; Start 01/09/19 at 09:00 Vancomycin HCl (Vanco Iv Per Pharmacy) VANCOMYCIN PER PHARMACY PER PROTOCOL XX ; Start 01/09/19 at 07:30 Vancomycin/Sodium Chloride 250 ml @ 125 mls/hr Q24H IVPB Last administered on 01/10/19 10:38; Admin Dose 125 MLS/HR; Start 01/10/19 at 10:00 Famotidine (Pepcid) 20 mg DAILY PO Last administered on 01/10/19 09:06; Admin Dose 20 MG; Start 01/10/19 at 09:00 Methylprednisolone Sodium Succinate (Solu-Medrol) 90 mg Q8H IV Last administered on 01/10/19 09:08; Admin Dose 90 MG; Start 01/09/19 at 17:30 Guaifenesin/ Dextromethorphan (Robitussin Dm Liquid Cup) 10 ml Q4 PRN PO COUGH; Start 01/09/19 at 17:30 Magnesium Oxide (Mag-Ox 400) 400 mg TID PO Last administered on 01/10/19 09:06; Admin Dose 400 MG; Start 01/09/19 at 17:30 Enoxaparin Sodium (Lovenox) 40 mg DAILY SC Last administered on 01/10/19 09:06; Admin Dose 40 MG; Start 01/10/19 at 09:00 ANALILIA BRUNO Jan 10, 2019 12:46
[2019-01-10] MEDS ORDERED: LEVOFLOXACIN 500 MG TAB PO ONE (13:00)
[2019-01-10 14:17] VITALS: BP 125/56; PULSE 100; RESP 20
[2019-01-10] MEDS: GUAIFENESIN/DM 5ML CUP PO PRN ×2 (15:16→22:40)
--- NOTE | 2019-01-10 15:53 | PN ---
Date/Time of Note Date/Time of Note DATE: 01/10/19 TIME: 15:52 Assessment/Plan VTE Prophylaxis Risk score (from Nsg)>0 risk: 5 SCD applied (from Nsg): Yes SCD contraindicated: low risk/ambulating Pharmacological prophylaxis: LMWH Lines/Catheters IV Catheter Type (from Nrs): Saline Lock Assessment/Plan Hospital Course Assessment and plan 1. Dyspnea, fever, bronchitis vs pneumonia. cont Antibiotics, follow-up on cultures 2. 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 3. Weight loss 5 to 8 pounds. 4. COPD? 5. Acute hypoxic respiratory failure, stable continue antibiotics S: 01/09 dyspnea low-grade fever. Mild/moderate weight loss only. States she was treated many years ago for tuberculosis. She started medical therapy in [place] and finished treatment in [place]. Denies any ill contacts. Did recently travel here from [place]. No edema chest pain. Diet has been okay. [place] and [place]. 01/10 patient states she feels a little better. No fever. O: vss PE No pallor Reg no mrg wheezing bilaterally Bs nt nd no RRG No edema or Homans Result Diagram: 01/10/19 0500 01/10/19 0438 Results 24hrs Laboratory Tests Test 01/10/19 04:38 01/10/19 05:00 Sodium Level 140 Potassium Level 3.9 Chloride Level 108 Carbon Dioxide Level 28 Anion Gap 4 L Blood Urea Nitrogen 17 Creatinine 0.60 Est Glomerular Filtrat Rate mL/min Glucose Level 150 Calcium Level 9.4 Phosphorus Level 2.4 L Magnesium Level 2.3 Total Bilirubin 0.6 Direct Bilirubin 0.00 Indirect Bilirubin 0.6 Aspartate Amino Transf (AST/SGOT) 40 Alanine Aminotransferase (ALT/SGPT) 23 Alkaline Phosphatase 98 Troponin I 0.017 Total Protein 6.9 Albumin 3.8 Globulin 3.10 Albumin/Globulin Ratio 1.22 Thyroid Stimulating Hormone (TSH) 1.090 White Blood Count 18.1 H Red Blood Count 4.24 Hemoglobin 12.8 Hematocrit 38.7 Mean Corpuscular Volume 91.3 Mean Corpuscular Hemoglobin 30.2 Mean Corpuscular Hemoglobin Concent 33.1 Red Cell Distribution Width 13.7 Platelet Count 247 Mean Platelet Volume 9.9 Immature Granulocytes % 0.400 Neutrophils % 93.5 H Lymphocytes % 4.2 L Monocytes % 1.8 Eosinophils % 0.0 Basophils % 0.1 Nucleated Red Blood Cells % 0.0 Immature Granulocytes # 0.080 H Neutrophils # 16.9 H Lymphocytes # 0.8 Monocytes # 0.3 Eosinophils # 0.0 Basophils # 0.0 Nucleated Red Blood Cells # 0.0 Exam/Review of Systems Exam Vitals Vital Signs Date Temp Pulse Resp B/P (MAP) Pulse Ox O2 O2 Flow FiO2 Time Delivery Rate 01/10/19 97.9 100 20 125/56 97 Nasal 2.0 14:17 (79) Cannula 01/10/19 21 01:13 Intake and Output 01/09/19 01/09/19 01/10/19 1515:00 23:00 07:00 IntakeIntake Total 350 ml BalanceBalance 350 ml Results Results 24hrs Laboratory Tests Test 01/10/19 04:38 01/10/19 05:00 Sodium Level 140 Potassium Level 3.9 Chloride Level 108 Carbon Dioxide Level 28 Anion Gap 4 L Blood Urea Nitrogen 17 Creatinine 0.60 Est Glomerular Filtrat Rate mL/min Glucose Level 150 Calcium Level 9.4 Phosphorus Level 2.4 L Magnesium Level 2.3 Total Bilirubin 0.6 Direct Bilirubin 0.00 Indirect Bilirubin 0.6 Aspartate Amino Transf (AST/SGOT) 40 Alanine Aminotransferase (ALT/SGPT) 23 Alkaline Phosphatase 98 Troponin I 0.017 Total Protein 6.9 Albumin 3.8 Globulin 3.10 Albumin/Globulin Ratio 1.22 Thyroid Stimulating Hormone (TSH) 1.090 White Blood Count 18.1 H Red Blood Count 4.24 Hemoglobin 12.8 Hematocrit 38.7 Mean Corpuscular Volume 91.3 Mean Corpuscular Hemoglobin 30.2 Mean Corpuscular Hemoglobin Concent 33.1 Red Cell Distribution Width 13.7 Platelet Count 247 Mean Platelet Volume 9.9 Immature Granulocytes % 0.400 Neutrophils % 93.5 H Lymphocytes % 4.2 L Monocytes % 1.8 Eosinophils % 0.0 Basophils % 0.1 Nucleated Red Blood Cells % 0.0 Immature Granulocytes # 0.080 H Neutrophils # 16.9 H Lymphocytes # 0.8 Monocytes # 0.3 Eosinophils # 0.0 Basophils # 0.0 Nucleated Red Blood Cells # 0.0 Medications Medication Current Medications Levalbuterol (Xopenex Neb) 1.25 mg Q4H RESP THERAPY HHN Last administered on 01/10/19 12:20; Admin Dose 1.25 MG; Start 01/09/19 at 05:00 Ipratropium [place] (Atrovent 0.02% (Neb)) 0.5 mg Q4H RESP THERAPY HHN Last administered on 01/10/19 12:20; Admin Dose 0.5 MG; Start 01/09/19 at 05:00 IV Flush (NS 3 ml) 3 ml PER PROTOCOL IV ; Start 01/09/19 at 03:00 Ondansetron HCl (Zofran Inj) 4 mg Q6H PRN IV NAUSEA/VOMITING; Start 01/09/19 at 03:00 Acetaminophen (Tylenol Tab) 650 mg Q6H PRN PO .PAIN 1-3 OR TEMP; Start 01/09/19 at 03:00 Docusate Sodium (Colace) 100 mg Q12H PRN PO .CONSTIPATION; Start 01/09/19 at 03:00 Bisacodyl (Dulcolax) 5 mg DAILY PRN PO .CONSTIPATION; Start 01/09/19 at 03:00 Famotidine (Pepcid) 20 mg DAILY PO Last administered on 01/10/19 09:06; Admin Dose 20 MG; Start 01/10/19 at 09:00 Methylprednisolone Sodium Succinate (Solu-Medrol) 90 mg Q8H IV Last administered on 01/10/19 09:08; Admin Dose 90 MG; Start 01/09/19 at 17:30 Guaifenesin/ Dextromethorphan (Robitussin Dm Liquid Cup) 10 ml Q4 PRN PO COUGH Last administered on 01/10/19 15:16; Admin Dose 10 ML; Start 01/09/19 at 17:30 Magnesium Oxide (Mag-Ox 400) 400 mg TID PO Last administered on 01/10/19 13:22; Admin Dose 400 MG; Start 01/09/19 at 17:30 Enoxaparin Sodium (Lovenox) 40 mg DAILY SC Last administered on 01/10/19 09:06; Admin Dose 40 MG; Start 01/10/19 at 09:00 Levofloxacin (Levaquin) 250 mg DAILY@06 PO ; Start 01/11/19 at 06:00 PRICE MIRANDA MD Jan 10, 2019 15:53
[2019-01-10 20:00] VITALS: BP 144/74; PULSE 102; RESP 17
[2019-01-11] MEDS: METHYLPREDNISOLONE 125 MG INJ IV SCH ×3 (01:33→17:36)
[2019-01-11 02:00] VITALS: BP 150/72; PULSE 105; RESP 20
[2019-01-11] MEDS: LEVALBUTEROL (NEB) 1.25 MG/0.5 ML AMP HHN SCH ×6 (02:40→21:31)
[2019-01-11] MEDS: IPRATROPIUM (NEB) 0.5 MG/2.5 ML AMP HHN SCH ×6 (02:40→21:31)
[2019-01-11] MEDS: LEVOFLOXACIN 250 MG TAB PO SCH (05:47)
[2019-01-11] MEDS: GUAIFENESIN/DM 5ML CUP PO PRN ×3 (05:52→20:51)
[2019-01-11 07:18] VITALS: BP 154/72; PULSE 100; RESP 16
[2019-01-11] MEDS: FAMOTIDINE 20 MG TAB PO SCH (08:50)
[2019-01-11] MEDS: MAGNESIUM OXIDE 400 MG TAB PO SCH ×3 (08:50→20:51)
[2019-01-11] MEDS: ENOXAPARIN 40 MG/0.4 ML SYG SC SCH (08:52)
--- NOTE | 2019-01-11 10:41 | PN ---
Date/Time of Note Date/Time of Note DATE: 01/11/19 TIME: 10:37 Assessment/Plan VTE Prophylaxis Risk score (from Ns)>0 risk: 5 SCD applied (from [facility]): Yes SCD contraindicated: low risk/ambulating Pharmacological prophylaxis: heparin Pharm contraindication: low risk/ambulating Lines/Catheters IV [facility]from [facility] Saline Lock Assessment/Plan Problems: (1) Urinary tract infection due to Prote[place] Date: ~ 01/09/2019 Status: Acute Comment: Patient is on an antibiotic that we know this organism is sensitive to. Continue treatment standard course. 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 This was roughly from a decade ago as near as the information in the chart and from what I can glean from the family. The sputum AFBs are being done now. 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 However she has been on steroids. I will go ahead and check the sedimentation rate as it should have decreased that quickly even with steroids if this was active tuberculosis Result Diagram: 01/11/19 0632 01/11/19 0632 Results 24hrs Laboratory Tests Test 01/11/19 06:32 White Blood Count 20.5 H Red Blood Count 4.55 Hemoglobin 13.7 Hematocrit 42.4 Mean Corpuscular Volume 93.2 Mean Corpuscular Hemoglobin 30.1 Mean Corpuscular Hemoglobin Concent 32.3 Red Cell Distribution Width 14.1 Platelet Count 289 Mean Platelet Volume 9.9 Immature Granulocytes % 0.600 H Neutrophils % 94.0 H Lymphocytes % 3.4 L Monocytes % 1.9 Eosinophils % 0.0 Basophils % 0.1 Nucleated Red Blood Cells % 0.0 Immature Granulocytes # 0.130 H Neutrophils # 19.2 H Lymphocytes # 0.7 L Monocytes # 0.4 Eosinophils # 0.0 Basophils # 0.0 Nucleated Red Blood Cells # 0.0 Sodium Level 139 Potassium Level 4.2 Chloride Level 105 Carbon Dioxide Level 27 Anion Gap 7 Blood Urea Nitrogen 21 H Creatinine 0.67 Est Glomerular Filtrat Rate mL/min Glucose Level 161 Calcium Level 9.2 Total Bilirubin 0.5 Direct Bilirubin 0.00 Indirect Bilirubin 0.5 Aspartate Amino Transf (AST/SGOT) 70 H Alanine Aminotransferase (ALT/SGPT) 30 Alkaline Phosphatase 91 Total Protein 7.1 Albumin 3.9 Globulin 3.20 Albumin/Globulin Ratio 1.21 Subjective 24 Hr Interval Summary Free Text/Dictation Patient reports that the nasal cannula is somewhat irritating makes it difficult to sleep. She reports her breathing is doing okay. Please note she is stoic Constitutional: no complaints (Denies fevers chills or sweats) Respiratory: cough, shortness of breath Cardiovascular: no complaints Gastrointestinal: no complaints Genitourinary: no complaints Musculoskeletal: no complaints Exam/Review of Systems Exam Vitals Vital Signs Date Temp Pulse Resp B/P (MAP) Pulse Ox O2 O2 Flow FiO2 Time Delivery Rate 01/11/19 98.1 100 16 154/72 97 Room Air 07:18 (99) 01/11/19 2.0 02:45 01/10/19 21 01:13 Intake and Output 01/10/19 01/10/19 01/11/19 1515:00 23:00 07:00 IntakeIntake Total 700 ml 300 ml 300 ml BalanceBalance 700 ml 300 ml 300 ml Constitutional: alert, oriented Neck: supple, non-tender Respiratory: crackles/rales, wheezing Cardiovascular: regular rate and rhythm, nl pulses Gastrointestinal: soft, nl liver, spleen, non-tender Results Results 24hrs Laboratory Tests Test 01/11/19 06:32 White Blood Count 20.5 H Red Blood Count 4.55 Hemoglobin 13.7 Hematocrit 42.4 Mean Corpuscular Volume 93.2 Mean Corpuscular Hemoglobin 30.1 Mean Corpuscular Hemoglobin Concent 32.3 Red Cell Distribution Width 14.1 Platelet Count 289 Mean Platelet Volume 9.9 Immature Granulocytes % 0.600 H Neutrophils % 94.0 H Lymphocytes % 3.4 L Monocytes % 1.9 Eosinophils % 0.0 Basophils % 0.1 Nucleated Red Blood Cells % 0.0 Immature Granulocytes # 0.130 H Neutrophils # 19.2 H Lymphocytes # 0.7 L Monocytes # 0.4 Eosinophils # 0.0 Basophils # 0.0 Nucleated Red Blood Cells # 0.0 Sodium Level 139 Potassium Level 4.2 Chloride Level 105 Carbon Dioxide Level 27 Anion Gap 7 Blood Urea Nitrogen 21 H Creatinine 0.67 Est Glomerular Filtrat Rate mL/min Glucose Level 161 Calcium Level 9.2 Total Bilirubin 0.5 Direct Bilirubin 0.00 Indirect Bilirubin 0.5 Aspartate Amino Transf (AST/SGOT) 70 H Alanine Aminotransferase (ALT/SGPT) 30 Alkaline Phosphatase 91 Total Protein 7.1 Albumin 3.9 Globulin 3.20 Albumin/Globulin Ratio 1.21 Medications Medication Current Medications Levalbuterol (Xopenex Neb) 1.25 mg Q4H RESP THERAPY HHN Last administered on 01/11/19at 02:40; Admin Dose 1.25 MG; Start 01/09/19 at 05:00 Ipratropium [place] (Atrovent 0.02% (Neb)) 0.5 mg Q4H RESP THERAPY HHN Last administered on 01/11/19at 02:40; Admin Dose 0.5 MG; Start 01/09/19 at 05:00 IV Flush (NS 3 ml) 3 ml PER PROTOCOL IV ; Start 01/09/19 at 03:00 Ondansetron HCl (Zofran Inj) 4 mg Q6H PRN IV NAUSEA/VOMITING; Start 01/09/19 at 03:00 Acetaminophen (Tylenol Tab) 650 mg Q6H PRN PO .PAIN 1-3 OR TEMP Last administered on 01/11/19at 08:59; Admin Dose 650 MG; Start 01/09/19 at 03:00 Docusate Sodium (Colace) 100 mg Q12H PRN PO .CONSTIPATION; Start 01/09/19 at 03:00 Bisacodyl (Dulcolax) 5 mg DAILY PRN PO .CONSTIPATION; Start 01/09/19 at 03:00 Famotidine (Pepcid) 20 mg DAILY PO Last administered on 01/11/19at 08:50; Admin Dose 20 MG; Start 01/10/19 at 09:00 Methylprednisolone Sodium Succinate (Solu-Medrol) 90 mg Q8H IV Last administered on 01/11/19at 08:50; Admin Dose 90 MG; Start 01/09/19 at 17:30 Guaifenesin/ Dextromethorphan (Robitussin Dm Liquid Cup) 10 ml Q4 PRN PO COUGH Last administered on 01/11/19at 05:52; Admin Dose 10 ML; Start 01/09/19 at 17:30 Magnesium Oxide (Mag-Ox 400) 400 mg TID PO Last administered on 01/11/19at 08:50; Admin Dose 400 MG; Start 01/09/19 at 17:30 Enoxaparin Sodium (Lovenox) 40 mg DAILY SC Last administered on 01/11/19at 08:52; Admin Dose 40 MG; Start 01/10/19 at 09:00 Levofloxacin (Levaquin) 250 mg DAILY@06 PO Last administered on 01/11/19at 05:47; Admin Dose 250 MG; Start 01/11/19 at 06:00 NELSON CAAL MD Jan 11, 2019 10:41
[2019-01-11] MEDS ORDERED: TIOTROPIUM 18 MCG CAPSULE INHA DEV INH SCH (11:00)
[2019-01-11 14:03] VITALS: BP 147/71; PULSE 88; RESP 16
--- NOTE | 2019-01-11 17:21 | CONS ---
Consult Date/Type/Reason Admit Date/Time Jan 09, 2019 at 02:00 Initial Consult Date 01/10/19 Type of Consultation: Pulm Date/Time of Note DATE: 01/11/19 TIME: 17:17 Subjective No events. Slightly better today. CT reviewed. Objective Vitals Vital Signs Date Temp Pulse Resp B/P (MAP) Pulse Ox O2 O2 Flow FiO2 Time Delivery Rate 01/11/19 98.4 88 16 147/71 96 Room Air 14:03 (96) 01/11/19 2.0 13:29 01/10/19 21 01:13 Intake and Output 01/10/19 01/10/19 01/11/19 1515:00 23:00 07:00 IntakeIntake Total 700 ml 300 ml 300 ml BalanceBalance 700 ml 300 ml 300 ml Exam HEENT: Neck supple; no JVD; no LAD CVS: RRR, S1 and S2 CHEST: Subtle wheezes upper lung zones ABD: Soft, NT, + BS EXT: No c/c/e Results/Medications Result Diagram: 01/11/19 0632 01/11/19 0632 Results 24 hrs Laboratory Tests Test 01/11/19 06:32 White Blood Count 20.5 H Red Blood Count 4.55 Hemoglobin 13.7 Hematocrit 42.4 Mean Corpuscular Volume 93.2 Mean Corpuscular Hemoglobin 30.1 Mean Corpuscular Hemoglobin Concent 32.3 Red Cell Distribution Width 14.1 Platelet Count 289 Mean Platelet Volume 9.9 Immature Granulocytes % 0.600 H Neutrophils % 94.0 H Lymphocytes % 3.4 L Monocytes % 1.9 Eosinophils % 0.0 Basophils % 0.1 Nucleated Red Blood Cells % 0.0 Immature Granulocytes # 0.130 H Neutrophils # 19.2 H Lymphocytes # 0.7 L Monocytes # 0.4 Eosinophils # 0.0 Basophils # 0.0 Nucleated Red Blood Cells # 0.0 Sodium Level 139 Potassium Level 4.2 Chloride Level 105 Carbon Dioxide Level 27 Anion Gap 7 Blood Urea Nitrogen 21 H Creatinine 0.67 Est Glomerular Filtrat Rate mL/min Glucose Level 161 Calcium Level 9.2 Total Bilirubin 0.5 Direct Bilirubin 0.00 Indirect Bilirubin 0.5 Aspartate Amino Transf (AST/SGOT) 70 H Alanine Aminotransferase (ALT/SGPT) 30 Alkaline Phosphatase 91 Total Protein 7.1 Albumin 3.9 Globulin 3.20 Albumin/Globulin Ratio 1.21 Home Meds Reported Medications [Ultibro] No Conflict Check, INH DAILY PRN for SHORTNESS OF BREATH 01/09/19 Phenylephrine/Diphenhydramine (DIMETAPP COLD & CONGEST LIQUID) 118 Ml Liquid, 118 ML PO 01/09/19 Medications Current Medications Levalbuterol (Xopenex Neb) 1.25 mg Q4H RESP THERAPY HHN Last administered on 01/11/19at 02:40; Admin Dose 1.25 MG; Start 01/09/19 at 05:00 Ipratropium [place] (Atrovent 0.02% (Neb)) 0.5 mg Q4H RESP THERAPY HHN Last administered on 01/11/19at 02:40; Admin Dose 0.5 MG; Start 01/09/19 at 05:00 IV Flush (NS 3 ml) 3 ml PER PROTOCOL IV ; Start 01/09/19 at 03:00 Ondansetron HCl (Zofran Inj) 4 mg Q6H PRN IV NAUSEA/VOMITING; Start 01/09/19 at 03:00 Acetaminophen (Tylenol Tab) 650 mg Q6H PRN PO .PAIN 1-3 OR TEMP Last administered on 01/11/19at 08:59; Admin Dose 650 MG; Start 01/09/19 at 03:00 Docusate Sodium (Colace) 100 mg Q12H PRN PO .CONSTIPATION; Start 01/09/19 at 03:00 Bisacodyl (Dulcolax) 5 mg DAILY PRN PO .CONSTIPATION; Start 01/09/19 at 03:00 Famotidine (Pepcid) 20 mg DAILY PO Last administered on 01/11/19at 08:50; Admin Dose 20 MG; Start 01/10/19 at 09:00 Guaifenesin/ Dextromethorphan (Robitussin Dm Liquid Cup) 10 ml Q4 PRN PO COUGH Last administered on 01/11/19at 10:45; Admin Dose 10 ML; Start 01/09/19 at 17:30 Magnesium Oxide (Mag-Ox 400) 400 mg TID PO Last administered on 01/11/19at 13:58; Admin Dose 400 MG; Start 01/09/19 at 17:30 Enoxaparin Sodium (Lovenox) 40 mg DAILY SC Last administered on 01/11/19at 08:52; Admin Dose 40 MG; Start 01/10/19 at 09:00 Levofloxacin (Levaquin) 250 mg DAILY@06 PO Last administered on 01/11/19at 05:47; Admin Dose 250 MG; Start 01/11/19 at 06:00; Stop 01/18/19 at 05:59 Methylprednisolone Sodium Succinate (Solu-Medrol) 30 mg Q8H IV ; Start 01/11/19 at 17:30 Tiotropium [place] (Spiriva) 1 inh DAILY INH ; Start 01/11/19 at 11:00 Fluticasone/ Vilanterol (Breo Ellipta 100-25 Mcg Inh) 1 inh DAILY INH ; Start 01/11/19 at 11:00 Montelukast Sodium (Singulair) 10 mg HS PO ; Start 01/11/19 at 21:00 Assessment/Plan Assessment/Plan (Daily) IMP: 1. 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 Other considerations would include diffuse particulate lung disease (Hut Lung) and pleuropulmonary fibroelastosis. RECS: 1. Continue BDs 2. 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 Taper CS REJI VOGEL MD Jan 11, 2019 17:21
[2019-01-11 20:00] VITALS: BP 146/70; PULSE 87; RESP 18
[2019-01-11] MEDS: MONTELUKAST 10 MG TAB PO SCH (20:51)
[2019-01-12] MEDS: LEVALBUTEROL (NEB) 1.25 MG/0.5 ML AMP HHN SCH ×6 (01:02→21:33)
[2019-01-12] MEDS: IPRATROPIUM (NEB) 0.5 MG/2.5 ML AMP HHN SCH ×6 (01:02→21:33)
[2019-01-12] MEDS: METHYLPREDNISOLONE 125 MG INJ IV SCH ×3 (01:50→21:12)
[2019-01-12 02:00] VITALS: BP 139/66; PULSE 109; RESP 18
[2019-01-12] MEDS: LEVOFLOXACIN 250 MG TAB PO SCH (05:56)
[2019-01-12 07:18] VITALS: BP 111/60; PULSE 86; RESP 18
--- NOTE | 2019-01-12 08:08 | PN ---
Date/Time of Note Date/Time of Note DATE: 01/12/19 TIME: 08:04 Assessment/Plan VTE Prophylaxis Risk score (from Ns)>0 risk: 5 SCD applied (from [facility] [place]): Yes SCD contraindicated: low risk/ambulating Pharmacological prophylaxis: heparin Pharm contraindication: low risk/ambulating Lines/Catheters IV C[facility]ter [facility] (from [facility] Saline Lock Assessment/Plan Problems: (1) Urinary tract infection due to Proteus [place]set Date: ~ 01/09/2019 Status: Acute Comment: Patient is on antibiotic therapy and we have proof of this particular bacteria being sensitive to the drugs were using. Continue standard course treatment (2) COPD (chronic obstructive pulmonary disease) Status: Acute Comment: Patient reports she is back to baseline. I have a suspicion that her definition of baseline might be our definition of needing admission. I suspect she has chronic lung disease. Curiously enough she has a negative QuantiFERON gold. Regardless she continues on pulmonary treatments and we can see about titrating down on the FiO2 to see what her actual needs are. 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 We have 1 out of 3 sputum AFB smears negative. When the other 2 were negative we can discharge the isolation depending upon how she is doing she can probably be dis charged out of the hospital (4) Grade I diastolic dysfunction Status: Chronic Comment: Noted. No therapeutic intervention Result Diagram: 01/12/19 0442 01/12/19 0442 Results 24hrs Laboratory Tests Test 01/12/19 04:42 White Blood Count 14.2 #H Red Blood Count 4.03 L Hemoglobin 12.0 Hematocrit 37.4 Mean Corpuscular Volume 92.8 Mean Corpuscular Hemoglobin 29.8 Mean Corpuscular Hemoglobin Concent 32.1 Red Cell Distribution Width 13.8 Platelet Count 268 Mean Platelet Volume 10.2 Immature Granulocytes % 0.500 H Neutrophils % 92.0 H Lymphocytes % 4.2 L Monocytes % 3.2 Eosinophils % 0.0 Basophils % 0.1 Nucleated Red Blood Cells % 0.0 Immature Granulocytes # 0.070 H Neutrophils # 13.1 H Lymphocytes # 0.6 L Monocytes # 0.5 Eosinophils # 0.0 Basophils # 0.0 Nucleated Red Blood Cells # 0.0 Sodium Level 138 Potassium Level 4.2 Chloride Level 104 Carbon Dioxide Level 32 H Anion Gap 2 L Blood Urea Nitrogen 21 H Creatinine 0.60 Est Glomerular Filtrat Rate mL/min Glucose Level 150 Calcium Level 8.4 Total Bilirubin 0.5 Direct Bilirubin 0.00 Indirect Bilirubin 0.5 Aspartate Amino Transf (AST/SGOT) 55 H Alanine Aminotransferase (ALT/SGPT) 47 Alkaline Phosphatase 75 C-Reactive Protein 1.1 H Total Protein 6.1 # Albumin 3.1 L Globulin 3.00 Albumin/Globulin Ratio 1.03 CC: REJI VOGEL MD; JASON DEJESUS MD, [facility] ; Subjective 24 Hr Interval Summary Free Text/Dictation Patient reports she is feeling better and is close to baseline from pulmonary standpoint. This is confirmed by her family members. Constitutional: no complaints (No fevers chills or sweats) Respiratory: no complaints (No further cough and denies shortness of breath) Cardiovascular: no complaints Gastrointestinal: no complaints Genitourinary: no complaints Exam/Review of Systems Exam Vitals Vital Signs Date Temp Pulse Resp B/P (MAP) Pulse Ox O2 O2 Flow FiO2 Time Delivery Rate 01/12/19 98.2 86 18 111/60 98 Nasal 07:18 (77) Cannula 01/12/19 2.0 05:28 01/10/19 21 01:13 Intake and Output 01/11/19 01/11/19 01/12/19 1515:00 23:00 07:00 IntakeIntake Total 600 ml 250 ml BalanceBalance 600 ml 250 ml Constitutional: alert, oriented Neck: supple, non-tender Respiratory: normal air movement, crackles/rales (Fine crackles especially in the upper airways) Cardiovascular: regular rate and rhythm, nl pulses Gastrointestinal: soft, nl liver, spleen, non-tender Results Results 24hrs Laboratory Tests Test 01/12/19 04:42 White Blood Count 14.2 #H Red Blood Count 4.03 L Hemoglobin 12.0 Hematocrit 37.4 Mean Corpuscular Volume 92.8 Mean Corpuscular Hemoglobin 29.8 Mean Corpuscular Hemoglobin Concent 32.1 Red Cell Distribution Width 13.8 Platelet Count 268 Mean Platelet Volume 10.2 Immature Granulocytes % 0.500 H Neutrophils % 92.0 H Lymphocytes % 4.2 L Monocytes % 3.2 Eosinophils % 0.0 Basophils % 0.1 Nucleated Red Blood Cells % 0.0 Immature Granulocytes # 0.070 H Neutrophils # 13.1 H Lymphocytes # 0.6 L Monocytes # 0.5 Eosinophils # 0.0 Basophils # 0.0 Nucleated Red Blood Cells # 0.0 Sodium Level 138 Potassium Level 4.2 Chloride Level 104 Carbon Dioxide Level 32 H Anion Gap 2 L Blood Urea Nitrogen 21 H Creatinine 0.60 Est Glomerular Filtrat Rate mL/min Glucose Level 150 Calcium Level 8.4 Total Bilirubin 0.5 Direct Bilirubin 0.00 Indirect Bilirubin 0.5 Aspartate Amino Transf (AST/SGOT) 55 H Alanine Aminotransferase (ALT/SGPT) 47 Alkaline Phosphatase 75 C-Reactive Protein 1.1 H Total Protein 6.1 # Albumin 3.1 L Globulin 3.00 Albumin/Globulin Ratio 1.03 Medications Medication Current Medications Levalbuterol (Xopenex Neb) 1.25 mg Q4H RESP THERAPY HHN Last administered on 01/12/19at 05:26; Admin Dose 1.25 MG; Start 01/09/19 at 05:00 Ipratropium [place] (Atrovent 0.02% (Neb)) 0.5 mg Q4H RESP THERAPY HHN Last administered on 01/12/19at 05:26; Admin Dose 0.5 MG; Start 01/09/19 at 05:00 IV Flush (NS 3 ml) 3 ml PER PROTOCOL IV ; Start 01/09/19 at 03:00 Ondansetron HCl (Zofran Inj) 4 mg Q6H PRN IV NAUSEA/VOMITING; Start 01/09/19 at 03:00 Acetaminophen (Tylenol Tab) 650 mg Q6H PRN PO .PAIN 1-3 OR TEMP Last administered on 01/11/19at 08:59; Admin Dose 650 MG; Start 01/09/19 at 03:00 Docusate Sodium (Colace) 100 mg Q12H PRN PO .CONSTIPATION; Start 01/09/19 at 03:00 Bisacodyl (Dulcolax) 5 mg DAILY PRN PO .CONSTIPATION; Start 01/09/19 at 03:00 Famotidine (Pepcid) 20 mg DAILY PO Last administered on 01/11/19at 08:50; Admin Dose 20 MG; Start 01/10/19 at 09:00 Guaifenesin/ Dextromethorphan (Robitussin Dm Liquid Cup) 10 ml Q4 PRN PO COUGH Last administered on 01/11/19at 20:51; Admin Dose 10 ML; Start 01/09/19 at 17:30 Magnesium Oxide (Mag-Ox 400) 400 mg TID PO Last administered on 01/11/19at 20:51; Admin Dose 400 MG; Start 01/09/19 at 17:30 Enoxaparin Sodium (Lovenox) 40 mg DAILY SC Last administered on 01/11/19at 08:52; Admin Dose 40 MG; Start 01/10/19 at 09:00 Levofloxacin (Levaquin) 250 mg DAILY@06 PO Last administered on 01/12/19at 05:56; Admin Dose 250 MG; Start 01/11/19 at 06:00; Stop 01/18/19 at 05:59 Tiotropium [place] (Spiriva) 1 inh DAILY INH ; Start 01/11/19 at 11:00 Fluticasone/ Vilanterol (Breo Ellipta 100-25 Mcg Inh) 1 inh DAILY INH ; Start 01/11/19 at 11:00 Montelukast Sodium (Singulair) 10 mg HS PO Last administered on 01/11/19at 20:51; Admin Dose 10 MG; Start 01/11/19 at 21:00 Methylprednisolone Sodium Succinate (Solu-Medrol) 30 mg Q12 IV ; Start 01/12/19 at 09:00; Stop 01/13/19 at 08:59; Status UNV Ergocalciferol (Drisdol) 50,000 unit [place]@09 PO ; Start 01/12/19 at 09:00; Status NELSON CHÁVEZ MD Jan 12, 2019 08:08
[2019-01-12] MEDS: FAMOTIDINE 20 MG TAB PO SCH (08:52)
[2019-01-12] MEDS: ENOXAPARIN 40 MG/0.4 ML SYG SC SCH (08:52)
[2019-01-12] MEDS: GUAIFENESIN/DM 5ML CUP PO PRN ×2 (08:52→21:25)
[2019-01-12] MEDS: MAGNESIUM OXIDE 400 MG TAB PO SCH ×3 (08:52→21:11)
[2019-01-12] MEDS ORDERED: ERGOCALCIFEROL 50,000 UNIT CAP PO SCH (09:00)
[2019-01-12] MEDS: FLUTICASONE/VILANTEROL 100-25 INH SCH ×2 (09:00→21:36)
[2019-01-12 14:42] VITALS: BP 135/70; PULSE 88; RESP 16
--- NOTE | 2019-01-12 15:31 | CONS ---
Consult Date/Type/Reason Admit Date/Time Jan 09, 2019 at 02:00 Initial Consult Date 01/10/19 Type of Consultation: Pulm Date/Time of Note DATE: 01/12/19 TIME: 15:28 Subjective No events. Remains on 2 L oxygen via NC. Objective Vitals Vital Signs Date Temp Pulse Resp B/P (MAP) Pulse Ox O2 O2 Flow FiO2 Time Delivery Rate 01/12/19 98.5 88 16 135/70 97 Room Air 14:42 (91) 01/12/19 2.0 05:28 01/10/19 21 01:13 Intake and Output 01/11/19 01/11/19 01/12/19 1515:00 23:00 07:00 IntakeIntake Total 600 ml 250 ml BalanceBalance 600 ml 250 ml Exam HEENT: Neck supple; no JVD; no LAD CVS: RRR, S1 and S2 CHEST: Subtle wheezes upper lung zones ABD: Soft, NT, + BS EXT: No c/c/e Results/Medications Result Diagram: 01/12/1944101/12/19441 Results 24 hrs Laboratory Tests Test 01/12/19 04:42 White Blood Count 14.2 #H Red Blood Count 4.03 L Hemoglobin 12.0 Hematocrit 37.4 Mean Corpuscular Volume 92.8 Mean Corpuscular Hemoglobin 29.8 Mean Corpuscular Hemoglobin Concent 32.1 Red Cell Distribution Width 13.8 Platelet Count 268 Mean Platelet Volume 10.2 Immature Granulocytes % 0.500 H Neutrophils % 92.0 H Lymphocytes % 4.2 L Monocytes % 3.2 Eosinophils % 0.0 Basophils % 0.1 Nucleated Red Blood Cells % 0.0 Immature Granulocytes # 0.070 H Neutrophils # 13.1 H Lymphocytes # 0.6 L Monocytes # 0.5 Eosinophils # 0.0 Basophils # 0.0 Nucleated Red Blood Cells # 0.0 Erythrocyte Sedimentation Rate 9 Sodium Level 138 Potassium Level 4.2 Chloride Level 104 Carbon Dioxide Level 32 H Anion Gap 2 L Blood Urea Nitrogen 21 H Creatinine 0.60 Est Glomerular Filtrat Rate mL/min Glucose Level 150 Calcium Level 8.4 Total Bilirubin 0.5 Direct Bilirubin 0.00 Indirect Bilirubin 0.5 Aspartate Amino Transf (AST/SGOT) 55 H Alanine Aminotransferase (ALT/SGPT) 47 Alkaline Phosphatase 75 C-Reactive Protein 1.1 H Total Protein 6.1 # Albumin 3.1 L Globulin 3.00 Albumin/Globulin Ratio 1.03 Home Meds Reported Medications [Ultibro] No Conflict Check, INH DAILY PRN for SHORTNESS OF BREATH 01/09/19 Phenylephrine/Diphenhydramine (DIMETAPP COLD & CONGEST LIQUID) 118 Ml Liquid, 118 ML PO 01/09/19 Medications Current Medications Levalbuterol (Xopenex Neb) 1.25 mg Q4H RESP THERAPY HHN Last administered on 01/12/19at 09:15; Admin Dose 1.25 MG; Start 01/09/19 at 05:00 Ipratropium [place] (Atrovent 0.02% (Neb)) 0.5 mg Q4H RESP THERAPY HHN Last administered on 01/12/19at 09:16; Admin Dose 0.5 MG; Start 01/09/19 at 05:00 IV Flush (NS 3 ml) 3 ml PER PROTOCOL IV ; Start 01/09/19 at 03:00 Ondansetron HCl (Zofran Inj) 4 mg Q6H PRN IV NAUSEA/VOMITING; Start 01/09/19 at 03:00 Acetaminophen (Tylenol Tab) 650 mg Q6H PRN PO .PAIN 1-3 OR TEMP Last administ ered on 01/11/19at 08:59; Admin Dose 650 MG; Start 01/09/19 at 03:00 Docusate Sodium (Colace) 100 mg Q12H PRN PO .CONSTIPATION; Start 01/09/19 at 03:00 Bisacodyl (Dulcolax) 5 mg DAILY PRN PO .CONSTIPATION; Start 01/09/19 at 03:00 Famotidine (Pepcid) 20 mg DAILY PO Last administered on 01/12/19at 08:52; Admin Dose 20 MG; Start 01/10/19 at 09:00 Guaifenesin/ Dextromethorphan (Robitussin Dm Liquid Cup) 10 ml Q4 PRN PO COUGH Last administered on 01/12/19at 08:52; Admin Dose 10 ML; Start 01/09/19 at 17:30 Magnesium Oxide (Mag-Ox 400) 400 mg TID PO Last administered on 01/12/19at 12:17; Admin Dose 400 MG; Start 01/09/19 at 17:30 Enoxaparin Sodium (Lovenox) 40 mg DAILY SC Last administered on 01/12/19at 08:52; Admin Dose 40 MG; Start 01/10/19 at 09:00 Levofloxacin (Levaquin) 250 mg DAILY@06 PO Last administered on 01/12/19at 05:56; Admin Dose 250 MG; Start 01/11/19 at 06:00; Stop 01/18/19 at 05:59 Tiotropium [place] (Spiriva) 1 inh DAILY INH ; Start 01/11/19 at 11:00 Fluticasone/ Vilanterol (Breo Ellipta 100-25 Mcg Inh) 1 inh DAILY INH ; Start 01/11/19 at 11:00 Montelukast Sodium (Singulair) 10 mg HS PO Last administered on 01/11/19at 20:51; Admin Dose 10 MG; Start 01/11/19 at 21:00 Methylprednisolone Sodium Succinate (Solu-Medrol) 30 mg Q12 IV Last administered on 01/12/19at 08:53; Admin Dose 30 MG; Start 01/12/19 at 09:00; Stop 01/13/19 at 08:59 Ergocalciferol (Drisdol) 50,000 unit [place]@09 PO Last administered on 01/12/19at 08:52; Admin Dose 50,000 UNIT; Start 01/12/19 at 09:00 Assessment/Plan Assessment/Plan (Daily) IMP: 1. 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 Other considerations would include diffuse particulate lung disease (Hut Lung) and pleuropulmonary fibroelastosis. 2. 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 Continue BDs 2. 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 Taper CS 4. Home O2 eval 5. Am ABG 6. Outpatient PFTs REJI VOGEL MD Jan 12, 2019 15:31
[2019-01-12 20:00] VITALS: BP 136/69; PULSE 83; RESP 18
[2019-01-12] MEDS: MONTELUKAST 10 MG TAB PO SCH (21:11)
[2019-01-13] MEDS: TIOTROPIUM 18 MCG CAPSULE INHA DEV INH SCH ×2 (00:23→09:48)
[2019-01-13] MEDS: LEVALBUTEROL (NEB) 1.25 MG/0.5 ML AMP HHN SCH ×6 (00:46→19:33)
[2019-01-13] MEDS: IPRATROPIUM (NEB) 0.5 MG/2.5 ML AMP HHN SCH ×6 (00:46→19:33)
[2019-01-13 02:00] VITALS: BP_SYST 121; BP_SYST 126; BP_DIAS 58; PULSE 71; PULSE 83; RESP 17
[2019-01-13] MEDS: LEVOFLOXACIN 250 MG TAB PO SCH (06:04)
[2019-01-13 08:23] VITALS: BP 159/80; PULSE 96; RESP 17
[2019-01-13 08:29] VITALS: BP 159/80; PULSE 96; RESP 17
[2019-01-13] MEDS: FLUTICASONE/VILANTEROL 100-25 INH SCH (09:48)
[2019-01-13] MEDS: MAGNESIUM OXIDE 400 MG TAB PO SCH ×3 (09:48→20:19)
[2019-01-13] MEDS: FAMOTIDINE 20 MG TAB PO SCH (09:48)
[2019-01-13] MEDS: ENOXAPARIN 40 MG/0.4 ML SYG SC SCH (09:52)
--- NOTE | 2019-01-13 11:44 | CONS ---
Consultation Date/Type/Reason Admit Date/Time Jan 09, 2019 at 02:00 Initial Consult Date 01/10/19 Type of Consult Pulmonary Patient is a very pleasant 88-year-old lady who just came in from [place] few days ago and after she got here the patient started having chest congestion and wheezing and low-grade fever. According to her she was absolutely fine prior to the onset of symptoms just a few days ago. Patient has been started on appropriate bronchodilator as well as systemic steroid regimen. Patient is reporting some improvement in symptoms. Denies any further fever, any chest pain, sore throat, or any other constitutional symptoms. Denies any chronic respiratory symptoms. Past medical history; unremarkable. Medications; reviewed. Allergies; penicillin. Social history; never smoked. Family history; noncontributory. Patient does have a supportive family. Occupational history; patient used to work in the [employer]. Review of systems; denies any headache, visual changes, sinus symptoms. Any chest pain, angina, complains of scant cough without any sputum production or hemoptysis. Complains of wheezing. Denies any chronic respiratory symptoms. Denies any abdominal pain, nausea, vomiting. Any melena hematochezia. Any urinary symptoms. Any edema. Any skin changes. Any arthritis symptoms. Any weight loss. Any night sweats or chills. General exam; elderly woman, awake alert, currently in no distress. Date/Time of Note DATE: 01/13/19 TIME: 11:43 24 HR Interval Summary Free Text/Dictation Patient's condition is stable. Remains awake and alert. Denies any wheezing, coughing, shortness of breath any sputum production. General exam; elderly lady, awake alert, currently in no distress. H EENT exam; supple neck, no JVD. No lymphadenopathy. Midline trachea. No thyromegaly. Patient is edentulous. Chest exam; clear to auscultation. S1-S2 audible, no murmurs. Regular rhythm. Abdomen exam; soft, no organomegaly. Bowel sounds audible. Extremity exam; no peripheral edema clubbing. [employer] exam; no focal deficit. Assessment and recommendations; 1. Patient admitted with COPD exacerbation and acute bronchitis with marked interval improvement. 2. 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 Clinically there is no evidence to suggest any ongoing active synovitis infection. Consider discharge. Obtain ambulatory pulse oximetry to rule out exertional hypoxemia. Outpatient PFT. Exam/Review of Systems Exam Vitals Vital Signs Date Temp Pulse Resp B/P (MAP) Pulse Ox O2 O2 Flow FiO2 Time Delivery Rate 01/13/19 Nasal 2.0 10:57 Cannula 01/13/19 98.4 96 17 159/80 98 08:29 (106) 01/10/19 21 01:13 Intake and Output 01/12/19 01/12/19 01/13/19 1515:00 23:00 07:00 IntakeIntake Total 600 ml 240 ml BalanceBalance 600 ml 240 ml Results Result Diagram: 01/12/19 0442 01/12/19 0442 Results 24hrs Laboratory Tests Test 01/13/19 08:00 01/13/19 08:55 Blood Gas Specimen Source Blood arterial Arterial Blood Date Drawn 01/13/2019 8:13:57 AM Arterial Blood pH (Temp corrected) 7.456 H Arterial Blood pCO2 (Temp correct) 42.5 Arterial Blood pO2 (Temp corrected) 127.8 H Arterial Blood HCO3 29.3 H Arterial Blood Base Excess 4.9 H Arterial Blood Oxygen Saturation 98.7 Jose Antonio Test ACCEPTAB Arterial Blood Gas Puncture Site Right Radial Arterial Blood Carboxyhemoglobin 0.4 Arterial Blood Methemoglobin 0.2 Blood Gas A-a O2 Differential 14.5 Oxyhemoglobin Percent 98.1 Blood Gas Temperature 37.0 Blood Gas Modality NASAL CANNULA FiO2 27.0 Blood Gas Notified Whom TM Blood Gas Notified Time 01/13/2019 8:32:36 AM Lab Scanned Report REFERENCE LAB Medications Medication Current Medications Levalbuterol (Xopenex Neb) 1.25 mg Q4H RESP THERAPY HHN Last administered on 01/13/19at 08:19; Admin Dose 1.25 MG; Start 01/09/19 at 05:00 Ipratropium [place] (Atrovent 0.02% (Neb)) 0.5 mg Q4H RESP THERAPY HHN Last administered on 01/13/19at 08:19; Admin Dose 0.5 MG; Start 01/09/19 at 05:00 IV Flush (NS 3 ml) 3 ml PER PROTOCOL IV ; Start 01/09/19 at 03:00 Ondansetron HCl (Zofran Inj) 4 mg Q6H PRN IV NAUSEA/VOMITING; Start 01/09/19 at 03:00 Acetaminophen (Tylenol Tab) 650 mg Q6H PRN PO .PAIN 1-3 OR TEMP Last administered on 01/11/19 08:59; Admin Dose 650 MG; Start 01/09/19 at 03:00 Docusate Sodium (Colace) 100 mg Q12H PRN PO .CONSTIPATION; Start 01/09/19 at 03:00 Bisacodyl (Dulcolax) 5 mg DAILY PRN PO .CONSTIPATION; Start 01/09/19 at 03:00 Famotidine (Pepcid) 20 mg DAILY PO Last administered on 01/13/19 09:48; Admin Dose 20 MG; Start 01/10/19 at 09:00 Guaifenesin/ Dextromethorphan (Robitussin Dm Liquid Cup) 10 ml Q4 PRN PO COUGH Last administered on 01/12/19 21:25; Admin Dose 10 ML; Start 01/09/19 at 17:30 Magnesium Oxide (Mag-Ox 400) 400 mg TID PO Last administered on 01/13/19 09:48; Admin Dose 400 MG; Start 01/09/19 at 17:30 Enoxaparin Sodium (Lovenox) 40 mg DAILY SC Last administered on 01/13/19 09:52; Admin Dose 40 MG; Start 01/10/19 at 09:00 Levofloxacin (Levaquin) 250 mg DAILY@06 PO Last administered on 01/13/19 06:04; Admin Dose 250 MG; Start 01/11/19 at 06:00; Stop 01/18/19 at 05:59 Fluticasone/ Vilanterol (Breo Ellipta 100-25 Mcg Inh) 1 inh DAILY INH Last administered on 01/13/19 09:48; Admin Dose 1 INH; Start 01/11/19 at 11:00 Montelukast Sodium (Singulair) 10 mg HS PO Last administered on 01/12/19 21:11; Admin Dose 10 MG; Start 01/11/19 at 21:00 Ergocalciferol (Drisdol) 50,000 unit [place]@09 PO Last administered on 01/12/19 08:52; Admin Dose 50,000 UNIT; Start 01/12/19 at 09:00 Tiotropium [place] (Spiriva) 1 inh DAILY INH Last administered on 6/17/19at 09:48; Admin Dose 1 INH; Start 01/12/19 at 21:51 ANALILIA BRUNO Jan 13, 2019 11:44
[2019-01-13] MEDS ORDERED: predniSONE 20 MG TAB PO SCH (13:00)
[2019-01-13 14:38] VITALS: BP 130/75; PULSE 90; RESP 17
--- NOTE | 2019-01-13 14:58 | PN ---
Date/Time of Note Date/Time of Note DATE: 01/13/19 TIME: 14:57 Objective Vitals Vital Signs Date Temp Pulse Resp B/P (MAP) Pulse Ox O2 O2 Flow FiO2 Time Delivery Rate 01/13/19 98.5 90 17 130/75 98 Room Air 14:38 (93) 01/13/19 2.0 13:49 01/10/19 21 01:13 Intake and Output 01/12/19 01/12/19 01/13/19 1414:59 22:59 06:59 IntakeIntake Total 600 ml 240 ml BalanceBalance 600 ml 240 ml Results Result Diagram: 01/12/19 0442 01/12/19 0442 Medications Medications Current Medications IV Flush (NS 3 ml) 3 ml PER PROTOCOL IV ; Start 01/09/19 at 03:00 Ondansetron HCl (Zofran Inj) 4 mg Q6H PRN IV NAUSEA/VOMITING; Start 01/09/19 at 03:00 Acetaminophen (Tylenol Tab) 650 mg Q6H PRN PO .PAIN 1-3 OR TEMP Last administered on 01/11/19at 08:59; Admin Dose 650 MG; Start 01/09/19 at 03:00 Docusate Sodium (Colace) 100 mg Q12H PRN PO .CONSTIPATION; Start 01/09/19 at 03:00 Bisacodyl (Dulcolax) 5 mg DAILY PRN PO .CONSTIPATION; Start 01/09/19 at 03:00 Famotidine (Pepcid) 20 mg DAILY PO Last administered on 01/13/19at 09:48; Admin Dose 20 MG; Start 01/10/19 at 09:00 Guaifenesin/ Dextromethorphan (Robitussin Dm Liquid Cup) 10 ml Q4 PRN PO COUGH Last administered on 01/12/19at 21:25; Admin Dose 10 ML; Start 01/09/19 at 17:30 Magnesium Oxide (Mag-Ox 400) 400 mg TID PO Last administered on 01/13/19at 13:12; Admin Dose 400 MG; Start 01/09/19 at 17:30 Enoxaparin Sodium (Lovenox) 40 mg DAILY SC Last administered on 01/13/19at 09:52; Admin Dose 40 MG; Start 01/10/19 at 09:00 Levofloxacin (Levaquin) 250 mg DAILY@06 PO Last administered on 01/13/19 06:04; Admin Dose 250 MG; Start 01/11/19 at 06:00; Stop 01/18/19 at 05:59 Fluticasone/ Vilanterol (Breo Ellipta 100-25 Mcg Inh) 1 inh DAILY INH Last administered on 01/13/19 09:48; Admin Dose 1 INH; Start 01/11/19 at 11:00 Montelukast Sodium (Singulair) 10 mg HS PO Last administered on 01/12/19 21:11; Admin Dose 10 MG; Start 01/11/19 at 21:00 Ergocalciferol (Drisdol) 50,000 unit [place]@09 PO Last administered on 01/12/19 08:52; Admin Dose 50,000 UNIT; Start 01/12/19 at 09:00 Tiotropium [place] (Spiriva) 1 inh DAILY INH Last administered on 01/13/19 09:48; Admin Dose 1 INH; Start 01/12/19 at 21:51 Ipratropium [place] (Atrovent 0.02% (Neb)) 0.5 mg Q6H RESP THERAPY HHN Last administered on 01/13/19 13:47; Admin Dose 0.5 MG; Start 01/13/19 at 14:00 Levalbuterol (Xopenex Neb) 1.25 mg Q6H RESP THERAPY HHN Last administered on 01/13/19 13:47; Admin Dose 1.25 MG; Start 01/13/19 at 14:00 Prednisone (Prednisone) 40 mg DAILY PO Last administered on 01/13/19 13:12; Admin Dose 40 MG; Start 01/13/19 at 13:00 VTE Prophylaxis Risk score (from Nsg)>0 risk: 5 SCD applied (from Nsg): Yes Lines/Catheters IV Catheter Type: Rodríguez in Place: No Assessment/Plan Hospital Course Subjective Patient feeling better Objective Physical exam General: Patient is laying in bed and answers questions appropriately Mentation: Patient is alert and oriented 4, Head: Normocephalic atraumatic Eyes: EOMI, pupils reactive to light Neck: Supple, nontender, midline Respiratory: Mild coarseness to auscultation bilaterally Cardiovascular: regular rate, no obvious murmurs Gastrointestinal: non-tender to palpation, bowel sounds heard. Neurological: Moves all extremities spontaneously Skin: No new skin lesions Assessment and plan Urinary tract infection -Continue antibiotics COPD -Continue nebulizer -Pulmonary recommendations appreciated Pulmonary fibrosis versus other fibrotic lung disease -Pulmonary recommendations appreciated -Patient will need continued follow-up with a railroad signal technician -Titrate down to Breo and Spiriva eventually -Patient will need to get medications from [facility] as patient has no insurance -Pulmonology okay with discontinuing TB precautions, negative TB Grade 1 diastolic dysfunction -Chronic -Monitor Disposition -Due to patient's no insurance status, will need to appropriately titrate medications and discharge to follow-up in the [facility] clinic, anticipate discharge within 1 to 2 days. CARY LUZ Jan 13, 2019 14:57
[2019-01-13 19:38] VITALS: BP 155/86; PULSE 94; RESP 17
[2019-01-13] MEDS: MONTELUKAST 10 MG TAB PO SCH (20:19)
[2019-01-13 22:02] VITALS: BP 140/70; PULSE 94; RESP 18
[2019-01-14] MEDS: IPRATROPIUM (NEB) 0.5 MG/2.5 ML AMP HHN SCH (01:51)
[2019-01-14] MEDS: LEVALBUTEROL (NEB) 1.25 MG/0.5 ML AMP HHN SCH (01:51)
[2019-01-14 02:47] VITALS: BP 135/62; PULSE 85; RESP 18
[2019-01-14] MEDS: LEVOFLOXACIN 250 MG TAB PO SCH (05:23)
[2019-01-14 07:35] VITALS: BP 131/62; PULSE 83; RESP 18
[2019-01-14] MEDS: TIOTROPIUM 18 MCG CAPSULE INHA DEV INH SCH (09:57)
[2019-01-14] MEDS: FLUTICASONE/VILANTEROL 100-25 INH SCH (09:57)
[2019-01-14] MEDS: FAMOTIDINE 20 MG TAB PO SCH (09:58)
[2019-01-14] MEDS: MAGNESIUM OXIDE 400 MG TAB PO SCH ×3 (09:58→20:49)
[2019-01-14] MEDS: ENOXAPARIN 40 MG/0.4 ML SYG SC SCH (10:04)
--- NOTE | 2019-01-14 12:20 | CONS ---
Consultation Date/Type/Reason Admit Date/Time Jan 09, 2019 at 02:00 Initial Consult Date 01/10/19 Type of Consult Pulmonary Patient is a very pleasant 88-year-old lady who just came in from [place] few days ago and after she got here the patient started having chest congestion and wheezing and low-grade fever. According to her she was absolutely fine prior to the onset of symptoms just a few days ago. Patient has been started on appropriate bronchodilator as well as systemic steroid regimen. Patient is reporting some improvement in symptoms. Denies any further fever, any chest pain, sore throat, or any other constitutional symptoms. Denies any chronic respiratory symptoms. Past medical history; unremarkable. Medications; reviewed. Allergies; penicillin. Social history; never smoked. Family history; noncontributory. Patient does have a supportive family. Occupational history; patient used to work in the [employer]. Review of systems; denies any headache, visual changes, sinus symptoms. Any chest pain, angina, complains of scant cough without any sputum production or hemoptysis. Complains of wheezing. Denies any chronic respiratory symptoms. Denies any abdominal pain, nausea, vomiting. Any melena hematochezia. Any urinary symptoms. Any edema. Any skin changes. Any arthritis symptoms. Any weight loss. Any night sweats or chills. General exam; elderly woman, awake alert, currently in no distress. Date/Time of Note DATE: 01/14/19 TIME: 12:19 24 HR Interval Summary Free Text/Dictation Patient's condition is stable. Remains completely awake and alert. Denies any shortness of breath, coughing, wheezing. General exam; elderly woman, awake alert, currently in no distress. On room air. H ENT exam; supple neck, no JVD. No lymphadenopathy. Midline trachea. No thyromegaly. Patient does have multiple carious teeth. Chest exam; diminished but clear breath sounds. S1-S2 audible, no murmurs. Regular rhythm. Abdomen exam; soft, nontender. No organomegaly. Bowel sounds audible. Extremity exam; no peripheral edema clubbing. SPIRAL GEAR GENERATOR exam; no focal deficit. Assessment and recommendations; 1. Patient admitted with acute bronchitis with severe wheezing with marked interval improvement. 2. 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 No acute infection suspected. Consider discharge. Off antibiotics off steroids. Exam/Review of Systems Exam Vitals Vital Signs Date Temp Pulse Resp B/P (MAP) Pulse Ox O2 O2 Flow FiO2 Time Delivery Rate 01/14/19 97.5 83 18 131/62 95 Room Air 07:35 (85) 01/14/19 21 01:51 01/13/19 2.0 21:00 Results Result Diagram: 01/14/19 0433 01/14/19 0433 Results 24hrs Laboratory Tests Test 01/14/19 04:33 White Blood Count 10.4 # Red Blood Count 4.13 L Hemoglobin 12.4 Hematocrit 38.1 Mean Corpuscular Volume 92.3 Mean Corpuscular Hemoglobin 30.0 Mean Corpuscular Hemoglobin Concent 32.5 Red Cell Distribution Width 13.7 Platelet Count 293 Mean Platelet Volume 10.1 Immature Granulocytes % 1.100 H Neutrophils % 70.6 Lymphocytes % 15.9 Monocytes % 12.0 H Eosinophils % 0.0 Basophils % 0.4 Nucleated Red Blood Cells % 0.0 Immature Granulocytes # 0.110 H Neutrophils # 7.3 Lymphocytes # 1.7 Monocytes # 1.2 H Eosinophils # 0.0 Basophils # 0.0 Nucleated Red Blood Cells # 0.0 Sodium Level 137 Potassium Level 4.1 Chloride Level 101 Carbon Dioxide Level 33 H Anion Gap 3 L Blood Urea Nitrogen 17 Creatinine 0.65 Est Glomerular Filtrat Rate mL/min Glucose Level 101 # Calcium Level 8.6 Phosphorus Level 2.6 Magnesium Level 2.5 Medications Medication Current Medications IV Flush (NS 3 ml) 3 ml PER PROTOCOL IV ; Start 01/09/19 at 03:00 Ondansetron HCl (Zofran Inj) 4 mg Q6H PRN IV NAUSEA/VOMITING; Start 01/09/19 at 03:00 Acetaminophen (Tylenol Tab) 650 mg Q6H PRN PO .PAIN 1-3 OR TEMP Last administered on 01/11/19at 08:59; Admin Dose 650 MG; Start 01/09/19 at 03:00 Docusate Sodium (Colace) 100 mg Q12H PRN PO .CONSTIPATION; Start 01/09/19 at 03:00 Bisacodyl (Dulcolax) 5 mg DAILY PRN PO .CONSTIPATION; Start 01/09/19 at 03:00 Famotidine (Pepcid) 20 mg DAILY PO Last administered on 01/14/19at 09:58; Admin Dose 20 MG; Start 01/10/19 at 09:00 Guaifenesin/ Dextromethorphan (Robitussin Dm Liquid Cup) 10 ml Q4 PRN PO COUGH Last administered on 01/12/19 21:25; Admin Dose 10 ML; Start 01/09/19 at 17:30 Magnesium Oxide (Mag-Ox 400) 400 mg TID PO Last administered on 01/14/19 09:58; Admin Dose 400 MG; Start 01/09/19 at 17:30 Enoxaparin Sodium (Lovenox) 40 mg DAILY SC Last administered on 01/14/19 10:04; Admin Dose 40 MG; Start 01/10/19 at 09:00 Levofloxacin (Levaquin) 250 mg DAILY@06 PO Last administered on 01/14/19 05:23; Admin Dose 250 MG; Start 01/11/19 at 06:00; Stop 01/18/19 at 05:59 Fluticasone/ Vilanterol (Breo Ellipta 100-25 Mcg Inh) 1 inh DAILY INH Last administered on 01/14/19 09:57; Admin Dose 1 INH; Start 01/11/19 at 11:00 Montelukast Sodium (Singulair) 10 mg HS PO Last administered on 01/13/19 20:19; Admin Dose 10 MG; Start 01/11/19 at 21:00 Ergocalciferol (Drisdol) 50,000 unit [place]@09 PO Last administered on 01/12/19 08:52; Admin Dose 50,000 UNIT; Start 01/12/19 at 09:00 Tiotropium [place] (Spiriva) 1 inh DAILY INH Last administered on 01/14/19 09:57; Admin Dose 1 INH; Start 01/12/19 at 21:51 Prednisone (Prednisone) 30 mg DAILY PO ; Start 01/15/19 at 09:00 ANALILIA BRUNO 18, 2019 12:20
--- NOTE | 2019-01-14 12:44 | PN ---
Date/Time of Note Date/Time of Note DATE: 01/14/19 TIME: 12:43 Objective Vitals Vital Signs Date Temp Pulse Resp B/P (MAP) Pulse Ox O2 O2 Flow FiO2 Time Delivery Rate 01/14/19 97.5 83 18 131/62 95 Room Air 07:35 (85) 01/14/19 21 01:51 01/13/19 2.0 21:00 Results Result Diagram: 01/14/19 0433 01/14/19 0433 Medications Medications Current Medications IV Flush (NS 3 ml) 3 ml PER PROTOCOL IV ; Start 01/09/19 at 03:00 Ondansetron HCl (Zofran Inj) 4 mg Q6H PRN IV NAUSEA/VOMITING; Start 01/09/19 at 03:00 Acetaminophen (Tylenol Tab) 650 mg Q6H PRN PO .PAIN 1-3 OR TEMP Last administered on 01/11/19at 08:59; Admin Dose 650 MG; Start 01/09/19 at 03:00 Docusate Sodium (Colace) 100 mg Q12H PRN PO .CONSTIPATION; Start 01/09/19 at 03:00 Bisacodyl (Dulcolax) 5 mg DAILY PRN PO .CONSTIPATION; Start 01/09/19 at 03:00 Famotidine (Pepcid) 20 mg DAILY PO Last administered on 01/14/19at 09:58; Admin Dose 20 MG; Start 01/10/19 at 09:00 Guaifenesin/ Dextromethorphan (Robitussin Dm Liquid Cup) 10 ml Q4 PRN PO COUGH Last administered on 01/12/19at 21:25; Admin Dose 10 ML; Start 01/09/19 at 17:30 Magnesium Oxide (Mag-Ox 400) 400 mg TID PO Last administered on 01/14/19at 09:58; Admin Dose 400 MG; Start 01/09/19 at 17:30 Enoxaparin Sodium (Lovenox) 40 mg DAILY SC Last administered on 01/14/19at 10:04; Admin Dose 40 MG; Start 01/10/19 at 09:00 Levofloxacin (Levaquin) 250 mg DAILY@06 PO Last administered on 01/14/19at 05:2 3; Admin Dose 250 MG; Start 01/11/19 at 06:00; Stop 01/18/19 at 05:59 Fluticasone/ Vilanterol (Breo Ellipta 100-25 Mcg Inh) 1 inh DAILY INH Last administered on 01/14/19 09:57; Admin Dose 1 INH; Start 01/11/19 at 11:00 Montelukast Sodium (Singulair) 10 mg HS PO Last administered on 01/13/19 20:1 9; Admin Dose 10 MG; Start 01/11/19 at 21:00 Ergocalciferol (Drisdol) 50,000 unit [place]@09 PO Last administered on 01/12/19 08:52; Admin Dose 50,000 UNIT; Start 01/12/19 at 09:00 Tiotropium [place] (Spiriva) 1 inh DAILY INH Last administered on 01/14/19at 09:57; Admin Dose 1 INH; Start 01/12/19 at 21:51 Prednisone (Prednisone) 30 mg DAILY PO ; Start 01/15/19 at 09:00 VTE Prophylaxis Risk score (from [facility])>0 risk: 5 SCD applied (from [facility]): Yes Lines/Catheters IV Catheter Type: Rodríguez in Place: No Assessment/Plan Hospital Course Subjective Patient feeling better Objective Physical exam General: Patient is laying in bed and answers questions appropriately Mentation: Patient is alert and oriented 4, Head: Normocephalic atraumatic Eyes: EOMI, pupils reactive to light Neck: Supple, nontender, midline Respiratory: clear to auscultation bilaterally Cardiovascular: regular rate, no obvious murmurs Gastrointestinal: non-tender to palpation, bowel sounds heard. Neurological: Moves all extremities spontaneously Skin: No new skin lesions Assessment and plan Urinary tract infection -Continue antibiotics COPD -Stop nebulizers initiate inhalers -Pulmonary recommendations appreciated Pulmonary fibrosis versus other fibrotic lung disease -Pulmonary recommendations appreciated -Patient will need continued follow-up with a miter saw operator -Titrate down to Breo and Spiriva -Patient will need to get medications from [facility] as patient has no insurance -Pulmonology okay with discontinuing TB precautions, negative TB Grade 1 diastolic dysfunction -Chronic -Monitor Disposition -Due to patient's no insurance status, will need to appropriately titrate medications and discharge to follow-up in the [facility] clinic, anticipate discharge within 1 to 2 days. CARY LUZ Jan 14, 2019 12:44
[2019-01-14 14:00] VITALS: BP 138/66; PULSE 91; RESP 18
[2019-01-14 19:41] VITALS: BP 131/60; PULSE 89; RESP 18
[2019-01-14] MEDS: MONTELUKAST 10 MG TAB PO SCH (20:49)
[2019-01-15 02:05] VITALS: BP 110/57; PULSE 83; RESP 17
[2019-01-15] MEDS: LEVOFLOXACIN 250 MG TAB PO SCH (05:13)
[2019-01-15] MEDS: GUAIFENESIN/DM 5ML CUP PO PRN (05:15)
[2019-01-15 08:01] VITALS: BP 130/67; PULSE 90; RESP 18
[2019-01-15] MEDS ORDERED: predniSONE 10 MG TAB PO SCH (09:00)
[2019-01-15] MEDS: FAMOTIDINE 20 MG TAB PO SCH (09:19)
[2019-01-15] MEDS: FLUTICASONE/VILANTEROL 100-25 INH SCH (09:19)
[2019-01-15] MEDS: MAGNESIUM OXIDE 400 MG TAB PO SCH ×2 (09:19→13:40)
[2019-01-15] MEDS: ENOXAPARIN 40 MG/0.4 ML SYG SC SCH (09:20)
[2019-01-15] MEDS: TIOTROPIUM 18 MCG CAPSULE INHA DEV INH SCH (09:20)
[2019-01-15] MEDS ORDERED: FLUT1AER INH (10:41)
[2019-01-15] MEDS ORDERED: LEVO250T9 PO (10:41)
[2019-01-15] MEDS ORDERED: MONT10TA24 PO (10:41)
[2019-01-15] MEDS ORDERED: TIOT18CA INH (10:41)
[2019-01-15] MEDS ORDERED: ALBU90AE INHALATION (10:41)
[2019-01-15] MEDS ORDERED: MED4DP PO (10:43)
--- NOTE | 2019-01-15 10:43 | PDOCDIS ---
Discharge Instructions CONDITION [id number] Patient Condition: [id number] Stable FOLLOW UP/APPOINTMENTS Follow-up Plan 1. 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 Please follow-up with your primary care provider as soon as possible 3. If you are not able to afford your prescriptions she will need to fill them at the [facility] clinic at [facility] CARY LUZ Jan 15, 2019 10:43
--- NOTE | 2019-01-15 10:50 | DS ---
Date/Time of Note Date/Time of Note DATE: 01/15/19 TIME: 10:50 Discharge Summary Admission/Discharge Info Admit Date/Time Jan 09, 2019 at 02:00 Discharge Date/Time Patient Condition: Stable Hospital Course Patient is a female with a past medical history significant for a history of tuberculosis who presented to [facility] for shortness of breath. Patient was diagnosed with pulmonary fibrosis versus other severe fibrotic lung disease and had a long course in the hospital due to questionable TB rule out. Pulmonology saw the patient and determined patient did not have active TB. Patient will be discharged with proper inhalers as well as antibiotics to cover urinary tract infection and possible pneumonia. Patient does not have insurance at this time however if from a walker will be provided for her, patient ambulance well with no issues on room air. Patient was given extensive counseling and insight into how to follow-up at the [facility] for free prescriptions as well as free medical care. He was instructed to follow-up with a chart writer as soon as possible for her fibrotic lung disease. Patient is stable at discharge. Discharge diagnosis Urinary tract infection, resolving COPD exacerbation, resolving Pulmonary fibrosis, chronic Grade 1 diastolic dysfunction Home Meds Active Scripts Methylprednisolone* (Medrol* DOSE PACK) 4 Mg/Dose-Pack Tab.ds.pk, 4 MG PO . DIRECTED, #1 PACKET Prov:CARY LUZ 01/15/19 Albuterol Sulfate (Proair Respiclick) 90 Mcg Aer.pow.ba, 1 PUFF INHALATION Q6 PRN for WHEEZING, #1 BOTTLE Prov:CARY LUZ 01/15/19 Montelukast Sodium* (Montelukast Sodium*) 10 Mg Tablet, 10 MG PO HS for 30 Days, #30 TAB Prov:CARY LUZ 01/15/19 Fluticasone-Vilanterol (Breo Ellipta Inhaler) 100-25 Mcg/Actuation Aer.pow.ba, 1 INH INH DAILY, #1 INHALER Prov:CARY LUZ 01/15/19 Tiotropium [place]* (Spiriva*) 18 Mcg Cap.w.dev, 1 INH INH DAILY, #1 INHALER Prov:CARY LUZ 01/15/19 Levofloxacin* (Levofloxacin*) 250 Mg Tablet, 250 MG PO DAILY for 3 Days, #3 TAB Please start on 01/16/19 Prov:CARY LUZ 01/15/19 Discontinued Reported Medications [Ultibro] No Conflict Check, INH DAILY PRN for SHORTNESS OF BREATH 01/09/19 Phenylephrine/Diphenhydramine (DIMETAPP COLD & CONGEST LIQUID) 118 Ml Liquid, 118 ML PO 01/09/19 Follow-up Plan 1. 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 Please follow-up with your primary care provider as soon as possible 3. If you are not able to afford your prescriptions she will need to fill them at the [facility] Primary Care Provider Care Physician No Primary Time spent on discharge: > 30 minutes Pending Labs Laboratory Tests Test 01/15/19 05:40 White Blood Count 8.5 10^3/ul (4.8-10.8) Red Blood Count 4.64 10^6/ul (4.20-5.40) Hemoglobin 13.9 g/dl (12.0-16.0) Hematocrit 42.8 % (37.0-47.0) Mean Corpuscular Volume 92.2 fl (82.0-101.0) Mean Corpuscular Hemoglobin 30.0 pg (29.0-33.0) Mean Corpuscular Hemoglobin Concent 32.5 g/dl (32.0-37.0) Red Cell Distribution Width 13.7 % (11.5-14.5) Platelet Count 308 10^3/UL (140-415) Mean Platelet Volume 9.6 fl (7.4-10.4) Immature Granulocytes % 3.200 % (0.001-0.429) Neutrophils % 58.7 % (39.0-77.0) Lymphocytes % 24.9 % (15.0-51.0) Monocytes % 11.0 % (0.0-11.0) Eosinophils % 1.3 % (0.0-7.0) Basophils % 0.9 % (0.0-2.0) Nucleated Red Blood Cells % 0.0 /100WBC (0.0-0.0) Immature Granulocytes # 0.270 10^3/ul (0.0-0.031) Neutrophils # 5.0 10^3/ul (1.6-7.5) Lymphocytes # 2.1 10^3/ul (0.8-2.9) Monocytes # 0.9 10^3/ul (0.3-0.9) Eosinophils # 0.1 10^3/ul (0.0-0.5) Basophils # 0.1 10^3/ul (0.0-0.1) Nucleated Red Blood Cells # 0.0 10^3/ul (0.0-0.0) Sodium Level 137 mmol/L (135-144) Potassium Level 4.3 mmol/L (3.5-5.1) Chloride Level 100 mmol/L (97-110) Carbon Dioxide Level 34 mmol/L (21-31) Anion Gap 3 (5-13) Blood Urea Nitrogen 17 mg/dl (7-20) Creatinine 0.77 mg/dl (0.44-1.00) Est Glomerular Filtrat Rate mL/min mL/min (>60) Glucose Level 105 mg/dl (70-220) Calcium Level 8.4 mg/dl (8.4-10.2) Phosphorus Level 2.9 mg/dl (2.5-4.9) Magnesium Level 2.4 mg/dl (1.7-2.5) CARY LUZ Jan 15, 2019 10:50
== END 2019-01-15 14:45 | disposition home or self-care (01) | DRG 190 ==
LOC: E/R 00:13 → EDBD 00:13 → PP2 02:00 → EDBEDREQSVC 03:46
PROVIDERS: ADMIT Family Medicine; ATTEND Internal Medicine
DX: J44.1 Chronic obstructive pulmonary disease with (acute) exacerbation (principal); J96.01 Acute respiratory failure with hypoxia; N39.0 Urinary tract infection, site not specified; J44.0 Chronic obstructive pulmonary disease with (acute) lower respiratory infection; J20.9 Acute bronchitis, unspecified; J84.10 Pulmonary fibrosis, unspecified; B96.4 Proteus (mirabilis) (morganii) as the cause of diseases classified elsewhere; Z86.11 Personal history of tuberculosis
CPT/HCPCS: 36415; 36600; 71045; 71260; 80048; 80053; 81001; 82306; 82550; 82553; 82803; 83036; 83605; 83690; 83735; 83880; 84100; 84443; 84484; 85025; 85610; 85651; 85730; 86140; 86480; 87086; 87116; 87400; 87556; 89220; 93005; 93306; 94640; 94664; 96374; 97161; J1100; J1644; J1650; J1956; J2930; J3370; J7040; J7050; J7512; Q9967